=== PATIENT | female | born 1980 | race African-American/Black ===

== ENCOUNTER 2016-04-22 20:05 | Emergency (ER) | payer OTHER ==
[2016-04-22 20:19] VITALS: BP 134/83; PULSE 75; TEMP 98.4; BMI 22.8
--- NOTE | 2016-04-22 20:23 | PDOC ---
History of Present Illness - General History Source: Patient Exam Limitations: No Limitations - History of Present Illness Initial Comments: 04/22/16 21:16 The patient is a 35 year old female, with no significant past medical history, who presents to the emergency department with chest discomfort for the past 3 days. Three days ago, the patient reports taking a Motrin gelcap for a toothache. Since then, the patient has been experiencing what she describes as burning chest discomfort. The patient states that the chest discomfort is somewhat alleviated by drinking plenty of water but is not affected by food. The patient states that the pain is worse when lying down and that it wakes her up from sleep. The patient denies shortness of breath. The patient denies fever , chills, cough, nausea, vomiting, diarrhea or dysuria. The patient denies any previous history of cardiac disease or pulmonary embolism. The patient denies any recent exertion or trauma. The patient denies any recent long travel. The patient is not on control pills. Allergies: None reported. Past Surgical History: None reported. Social History: Non smoker. Denies alcohol or drug use. PCP: Dr. Joe Stiles <Emeli Huddleston - Last Filed: 04/22/16 22:08> <Emerson Valle - Last Filed: 04/22/16 22:12> - General Chief Complaint: Chest Pain Stated Complaint: CHEST PAIN Time Seen by Provider: 04/22/16 20:18 Past History <Emeli Huddleston - Last Filed: 04/22/16 22:08> - Immunization History Immunization Up to Date: Yes - Psycho/Social/Smoking Cessation Hx Anxiety: No Suicidal Ideation: No Smoking History: Never smoked Have you smoked in the past 12 months: No Information on smoking cessation initiated: No Hx Alcohol Use: No Drug/Substance Use Hx: No Substance Use Type: None <Emerson Valle - Last Filed: 04/22/16 22:12> - Past Medical History Allergies/Adverse Reactions: Allergies Allergy/AdvReac Type Severity Reaction Status Date / Time No Known Allergies Allergy Verified 04/22/16 20:19 Home Medications: Ambulatory Orders NK [No Known Home Medication] 09/28/15 Review of Systems - Review of Systems Constitutional: No: Chills, Fever HEENTM: No: Nose Congestion, Throat Pain Respiratory: No: Cough, Shortness of Breath Cardiac (ROS): Yes: Chest Pain, Palpitations. No: Syncope ABD/GI: No: Diarrhea, Nausea, Vomiting All Other Systems: Reviewed and Negative <Emerson Valle - Last Filed: 04/22/16 22:12> *Physical Exam - Vital Signs Last Vital Signs Temp Pulse Resp BP Pulse Ox 98.4 F 75 18 134/83 100 04/22/16 20:14 04/22/16 20:14 04/22/16 20:14 04/22/16 20:14 04/22/16 20:14 - Physical Exam Comments: 04/22/16 20:37 GENERAL:The patient is awake, alert, and fully oriented, in no acute distress. HEAD: Normal with no signs of trauma. EYES: Pupils equal, round and reactive to light, extraocular movements intact, sclera anicteric, conjunctiva clear with no pallor. ENT: Ears normal, nares patent, oropharynx clear without exudates. Moist mucous membranes. NECK: Normal range of motion, supple without lymphadenopathy, JVD, or masses. LUNGS: Breath sounds equal, clear to auscultation bilaterally. No wheeze/ crackles. HEART: Regular rate and rhythm, normal S1 and S2 without murmur or rub. ABDOMEN: Soft/nontender/nondistended. BS wnl. No guarding or rebound. No palpable masses. No hepatosplenomegaly. EXTREMITIES: Normal range of motion, no edema. No clubbing or cyanosis. No cords , erythema, or tenderness. No calf tenderness. NEUROLOGICAL: Cranial nerves II through XII grossly intact. Normal speech, normal gait. PSYCH: Normal mood, normal affect. SKIN: Warm, dry, normal turgor, no rashes or lesions noted. <Emeli Huddleston - Last Filed: 04/22/16 22:08> - Vital Signs Last Vital Signs Temp Pulse Resp BP Pulse Ox 98.4 F 75 18 134/83 100 04/22/16 20:14 04/22/16 20:14 04/22/16 20:14 04/22/16 20:14 04/22/16 20:14 <Emerson Valle - Last Filed: 04/22/16 22:12> Heart Score/ECG Review - History History: Slightly suspicious - Electrocardiogram EKG: Normal - Age Age: </= 45 - Risk Factors Based on the list above the patient has:: No risk factors known #1 ECG reviewed & interpreted by me at: 20:09 General ECG Interpretation: Sinus Rhythm, Normal Rate (72), Normal Intervals ( IRBBB, QTC 429), No acute ischemic changes <Emerson Valle - Last Filed: 04/22/16 22:12> Medical Decision Making - Medical Decision Making 04/22/16 22:09 Chest X-Ray Preliminary Reading (awaiting official report): Normal heart. No pneumothorax. No infiltrate. <Emeli Huddleston - Last Filed: 04/22/16 22:08> - Medical Decision Making 04/22/16 20:44 A portion of this note was documented by scribe services under my direction. I have reviewed the details of the note, within reason, and agree with the documentation with the following case summary and management plan written by me. Healthy 35-year-old female with no severe past medical history, no ACS or PE risk factors presents with 3 days of intermittent chest tightness. Patient took a dose of Motrin 3 days ago for toothache, since then has had intermittent chest burning relieved only with drinking water and worsened with lying flat. No nausea or vomiting or hematemesis, no exertional component, no fevers or chills or cough. Vital signs normal, specifically she is not tachycardic or hypoxic Exam is normal, no signs or symptoms of DVT 35-year-old female with atypical chest pain and no risk factors for ACS or PE. She clinically rules out for both, presentation is most consistent with gastritis/GERD particularly given the history of NSAID intake. EKG is nonischemic Check chest x-ray Trial of Maalox and antacid Dispo accordingly 04/22/16 22:10 On my preliminary review of the chest x-ray, there are no acute abnormalities. Feels well, ambulating, chest pain-free without shortness of breath. Agrees with discharge plan, understands return criteria. <Emerson Valle - Last Filed: 04/22/16 22:12> *DC/Admit/Observation/Transfer - Attestations Scribe Attestion: 04/22/16 20:29 Documentation prepared by Emeli Huddleston, acting as medical planner for Emerson Valle MD. <Emeli Huddleston - Last Filed: 04/22/16 22:08> <Emerson Valle - Last Filed: 04/22/16 22:12> Diagnosis at time of Disposition: Dyspepsia - Discharge Dispostion Disposition: HOME Condition at time of disposition: Improved - Referrals Referrals: Joe Stiles MD [Primary Care Provider] - Khurram Ruiz MD [Staff Physician] - - Patient Instructions Printed Discharge Instructions: DI for Dyspepsia, DI for Atypical Chest Pain Additional Instructions: Activity as tolerated. Stay hydrated. Advance diet as tolerated, avoiding dairy , spicy or fatty foods, caffeine and alcohol. Avoid anti-inflammatory medications like Motrin, ibuprofen, Advil, Aleve, aspirin. An EKG and a chest x-ray showed no evidence of acute heart or lung abnormality. Your symptoms are most likely due to GERD. Take Pepcid 20 mg twice daily for 10 days, this is available [id number]. Take Maalox or Tums as needed for the next 3 days for immediate relief. You should follow up with your primary doctor and a legislative aide ( consider calling Dr. Ruiz) as soon as possible regarding today's emergency department visit. Return to the emergency department for any new or concerning symptoms, particularly persistent or worsening pain, difficulty breathing, bloody vomit, cough or fevers or chills.
[2016-04-22] MEDS ORDERED: RANITIDINE HCL 150 MG TABLET (FP) PO ONE (20:37)
[2016-04-22] MEDS ORDERED: MAG HYDROX/AL HYDROX/SIMETH 30 ML UNIT-DOSE CUP PO ONE (20:37)
[2016-04-22] MEDS ORDERED: RANITIDINE HCL 150 MG TABLET (FP) ONE (21:01)
[2016-04-22] MEDS ORDERED: MAG HYDROX/AL HYDROX/SIMETH 30 ML UNIT-DOSE CUP ONE (21:01)
--- NOTE | 2016-04-23 20:14 | EKG ---
Test Reason : Blood Pressure : / mmHG Vent. Rate : 072 BPM Atrial Rate : 072 BPM P-R Int : 134 ms QRS Dur : 082 ms QT Int : 392 ms P-R-T Axes : 058 057 029 degrees QTc Int : 429 ms LIKELY NORMAL SINUS RHYTHM WITH SINUS ARRHYTHMIA CAMEL HUMP T WAVE MORPHOLOGY IN ANTERIOR LEADS WHEN COMPARED WITH ECG OF 09-DEC-2014 23:16, FLAT T WAVES NO LONGER EVIDENT IN INFEROLATERAL LEADS Confirmed by BALBINA REYES, GLORIA ([id number]) on 04/23/2016 8:14:39 PM Referred By: Confirmed By:GLORIA MORTENSEN MD
== END 2016-04-22 22:18 | disposition home or self-care (01) ==
LOC: JER 20:05 → SUPCPDRO 20:05 → JER 22:18
DX: R10.13 Epigastric pain (principal)
CPT/HCPCS: 71020-TC; 84703; 93005; 93010; 99282-25

== ENCOUNTER 2016-08-21 21:47 | Emergency (ER) | payer OTHER ==
[2016-08-21 21:57] VITALS: BMI 22.0
[2016-08-22] MEDS ORDERED: AZITHROMYCIN 1 GM PACKET PO ONE (00:11)
[2016-08-22] MEDS ORDERED: AZITHROMYCIN 1 GM PACKET ONE (00:17)
[2016-08-22] MEDS ORDERED: AZITHROMYCIN 250 MG TABLET (FP) ONE (00:18)
[2016-08-22] MEDS ORDERED: RALTEGRAVIR POTASSIUM 400 MG TAB PO SCH (00:30)
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
[2016-08-22] MEDS ORDERED: LIDOCAINE HCL/PF 1% SDV 5ML VIAL ONE (00:41)
[2016-08-22] MEDS ORDERED: TENOFOVIR DISOPROXIL FUMARATE 300 MG TABLET PO SCH ×2 (00:45→10:00)
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
[2016-08-22 02:07] LABS: BASOPHIL 0.8 % (0-2.0); EOSINOPHIL 3.2 % (0-4.5); MCH 28.1 pg (25.7-33.7); MCHC 32.4 g/dl (32.0-36.0); MEAN CELL VOLUME 86.8 fl (80-96); MEAN PLT VOLUME 8.8 fl (7.5-11.1); PLATELET COUNT 235 K/MM3 (134-434); RDW 17.2 % (11.6-15.6); WHITE BLOOD COUNT 3.4 K/mm3 (4.0-10.0)
[2016-08-22 02:25] LABS: URINE APPEARANCE CLEAR; URINE BILIRUBIN NEGATIVE (NEGATIVE); URINE COLOR STRAW; URINE GLUCOSE (UA) NEGATIVE (NEGATIVE); URINE KETONE NEGATIVE (NEGATIVE); URINE LEUK ESTERASE NEGATIVE (NEGATIVE); URINE NITRITE NEGATIVE (NEGATIVE); URINE PROTEIN NEGATIVE (NEGATIVE); URINE UROBILINOGEN NEGATIVE E.U./dl (0.2-1.0)
[2016-08-22] MEDS ORDERED: IBUPROFEN 600 MG TABLET (FP) PO ONE (02:27)
[2016-08-22 02:28] LABS: URINE BLOOD 1+ (NEGATIVE)
[2016-08-22 02:35] LABS: ALBUMIN 3.9 g/dl (3.4-5.0); ANION GAP 9 (8-16); CALCIUM 8.6 mg/dL (8.5-10.1); CHOLESTEROL 160 mg/dL (50-200); CO2 26 mmol/L (21-32); CREATININE 0.9 mg/dL (0.55-1.02); GLUCOSE,RANDOM 93 mg/dL (74-106); LDH 241 U/L (84-246); PHOSPHOROUS 3.3 mg/dL (2.5-4.9); SGOT/AST 38 U/L (15-37); SGPT/ALT 23 U/L (12-78); URIC ACID 4.2 mg/dL (2.6-7.2)
[2016-08-22 02:37] LABS: ALK PHOS 53 U/L (45-117); BILIRUBIN,TOTAL 0.4 mg/dL (0.2-1.0)
[2016-08-22 02:51] LABS: URINE RBC <1 /hpf (0-3); URINE WBC 1 /hpf (3-5)
[2016-08-22] MEDS ORDERED: EMTRICITABINE 200 MG CAPSULE PO SCH (03:10)
[2016-08-22 03:12] LABS: HIV 1 & 2 AB NEGATIVE; HIV 1 AGp24 NEGATIVE
[2016-08-22] MEDS ORDERED: ONDANSETRON 4 MG TABLET PO ONE (03:52)
[2016-08-22] MEDS ORDERED: ONDANSETRON *ODT* 4 MG TABLET ONE (03:56)
[2016-08-22 04:00] VITALS: BP 136/72; PULSE 70; TEMP 98.2
[2016-08-23] MEDS ORDERED: EMTRICITABINE 200MG/TENOFOVIR 300MG PO SCH (10:00)
== END 2016-08-22 03:59 | disposition home or self-care (01) ==
LOC: JER 21:47
DX: Z04.41 Encounter for examination and observation following alleged adult rape (principal); Y07.9 Unspecified perpetrator of maltreatment and neglect
CPT/HCPCS: 36415; 80053; 81003; 81015; 82465; 82977; 83615; 84100; 84478; 84550; 84703; 85025; 86593; 86704; 86706; 87086; 87340; 87389; 87491; 87591; 96372; 99282-25

== ENCOUNTER 2019-11-05 17:12 | Inpatient (IN) | payer OTHER ==
--- NOTE | 2019-11-05 17:29 | PDOC ---
Rapid Medical Evaluation Time Seen by Provider: 11/05/19 17:23 Medical Evaluation: Allergies Allergy/AdvReac Type Severity Reaction Status Date / Time No Known Allergies Allergy Verified 08/21/16 21:57 11/05/19 17:29 CC: Pt states was given prolixin injection on the oct 24 and now with weakness, tongue thickness, feeling jittery Exam: no fasciculation of the body or tongue, vss, appears lethargic Plan: labs, low suspicion for tardive dyskin 11/05/19 17:44 Discharge Disposition - Diagnosis Medication side effect, Adverse drug reaction - Discharge Dispostion Disposition: HOME Condition at time of disposition: Improved - Referrals - Patient Instructions - Post Discharge Activity
[2019-11-05 17:33] VITALS: BMI 22.8
[2019-11-05 18:40] LABS: BASO % 0.6 % (0-2.0); EOS % 1.4 % (0-4.5); HEMOGLOBIN 10.8 GM/dL (10.7-15.3); LYMPH % 32.1 % (8-40); MCH 28.4 pg (25.7-33.7); MCHC 32.9 g/dl (32.0-36.0); MEAN CELL VOLUME 86.3 fl (80-96); MEAN PLT VOLUME 10.2 fl (7.5-11.1); MONO % 8.8 % (3.8-10.2); NEUT % 57.1 % (42.8-82.8); PLATELET COUNT 189 K/MM3 (134-434); RBC 3.82 M/mm3 (3.60-5.2); RDW 16.7 % (11.6-15.6); WHITE BLOOD COUNT 4.9 K/mm3 (4.0-10.0)
[2019-11-05 19:16] LABS: ALBUMIN 4.3 g/dl (3.4-5.0); ALK PHOS 53 U/L (45-117); ANION GAP 7 MMOL/L (8-16); BILIRUBIN,TOTAL 0.4 mg/dL (0.2-1); BLOOD UREA NITROGEN 9.6 mg/dL (7-18); CALCIUM 8.9 mg/dL (8.5-10.1); CHLORIDE 105 mmol/L (98-107); CO2 26 mmol/L (21-32); GLUCOSE,RANDOM 84 mg/dL (74-106); POTASSIUM 4.1 mmol/L (3.5-5.1); SGOT/AST 16 U/L (15-37); SGPT/ALT 18 U/L (13-61); SODIUM 139 mmol/L (136-145); TOT PROT 8.1 g/dl (6.4-8.2)
[2019-11-05] MEDS ORDERED: LORazepam 2 MG/ML SDV VIAL ONE (19:49)
--- NOTE | 2019-11-05 20:13 | PDOC ---
*Physical Exam - Vital Signs Last Vital Signs Temp Pulse Resp BP Pulse Ox 98.0 F 92 H 18 142/101 H 100 11/05/19 17:25 11/05/19 17:25 11/05/19 17:25 11/05/19 17:25 11/05/19 17:25 - Physical Exam 11/05/19 20:11 gen: aaox3, anxious, tremulous heart: +s1s2 reg lungs: cta b/l abd: soft, nt/nd +bs ext: tremors, no c/c/e Heart Score/ECG Review - ECG Intrepretation Comment:: 11/05/19 20:12 sinus at 66, nl axis, nl interval, no acute st/t wave findings ED Treatment Course - LABORATORY CBC & Chemistry Diagram: 11/05/19 18:20 11/05/19 18:20 - ADDITIONAL ORDERS Additional order review: Laboratory Results 11/05/19 11/05/19 18:20 18:20 Sodium 139 Potassium 4.1 Chloride 105 Carbon Dioxide 26 Anion Gap 7 L BUN 9.6 Creatinine 1.0 Est GFR (CKD-EPI)AfAm 83.35 Est GFR (CKD-EPI)NonAf 71.91 Random Glucose 84 Calcium 8.9 Total Bilirubin 0.4 AST 16 ALT 18 Alkaline Phosphatase 53 Troponin I < 0.02 Total Protein 8.1 Albumin 4.3 Serum , Qual Negative 11/05/19 18:20 RBC 3.82 MCV 86.3 MCHC 32.9 RDW 16.7 H MPV 10.2 D Neutrophils % 57.1 D Lymphocytes % 32.1 D Monocytes % 8.8 Eosinophils % 1.4 Basophils % 0.6 - Medications Given in the ED: ED Medications Discontinued Medications Generic Name Dose Route Start Last Admin Trade Name Freq PRN Reason Stop Dose Admin Diphenhydramine HCl 25 mg 11/05/19 18:06 11/05/19 18:27 Benadryl Injection - IVPB 11/05/19 18:07 25 mg ONCE ONE Administration Lorazepam 2 mg 11/05/19 19:42 11/05/19 20:04 Ativan Injection - IVPUSH 11/05/19 19:43 2 mg ONCE ONE Administration Medical Decision Making - Medical Decision Making 11/05/19 20:12 a/p: 39yo female who is having an adverse reaction to Prolia injection -pt given benadryl and ativan -felt better initially, but symptoms returning -will need admission overnight -labs reviewed 11/05/19 20:13 ck pending ua pending 11/05/19 22:13 pt will be admitted for further eval Discharge - Discharge Information Problems reviewed: Yes Clinical Impression/Diagnosis: Medication side effect, Adverse drug reaction Condition: Fair - Admission Yes - Follow up/Referral - Patient Discharge Instructions - Post Discharge Activity
--- NOTE | 2019-11-05 20:22 | PDOC ---
History of Present Illness - General Chief Complaint: Allergic Reaction Stated Complaint: PERSONAL Time Seen by Provider: 11/05/19 17:23 - History of Present Illness Initial Comments: 11/05/19 20:20 39-year-old female given an injection of Prolixin for psychosis on October 23 presents for evaluation of dystonic reactions increasing over the last 4 days she feels shaky and inability to sit still neck and muscle cramping at times. Past History - Medical History Allergies/Adverse Reactions: Allergies Allergy/AdvReac Type Severity Reaction Status Date / Time No Known Allergies Allergy Verified 08/21/16 21:57 Home Medications: Ambulatory Orders Emtricitabine/Tenofovir (Tdf) [Truvada 200 mg-300 mg Tablet] 1 each PO DAILY #27 tablet 08/22/16 NK [No Known Home Medication] 08/22/16 Raltegravir [Isentress -] 400 mg PO BID #46 tab 08/22/16 Anemia: No Asthma: No COPD: No Diabetes: No Psychiatric Problems: Yes Seizures: No - Reproductive History Is Patient Now?: No - Immunization History Immunization Up to Date: Yes - Psycho-Social/Smoking History Smoking History: Never smoked Have you smoked in the past 12 months: No Information on smoking cessation initiated: No - Substance Abuse Hx (Audit-C & DAST Scrn) How often the patient has a drink containing alcohol: Monthly or less Number of drinks the patient has on a typical day: 1 or 2 How often the patient has six or more drinks on one occasion: Less than monthly Score: In Men: 4 or > Positive; In Women: 3 or > Positive: 2 Screen Result (Pos requires Nsg. Audit-10AR): Negative In the last yr the pt used illegal drug/Rx for NonMed reason: No Score: Yes response is considered Positive: 0 Screen Result (Positive result requires Nsg. DAST-10): Negative Review of Systems - Review of Systems Able to Perform ROS?: No Constitutional: No: Fever Neurological: Yes: See HPI, Tremors *Physical Exam - Vital Signs Last Vital Signs Temp Pulse Resp BP Pulse Ox 98.0 F 92 H 18 142/101 H 100 11/05/19 17:25 11/05/19 17:25 11/05/19 17:25 11/05/19 17:25 11/05/19 17:25 - Physical Exam General Appearance: Yes: Nourished, Appropriately Dressed. No: Apparent Distress HEENT: positive: Symmetrical Neck: positive: Supple Respiratory/Chest: positive: Normal Breath Sounds. negative: Respiratory Distress Musculoskeletal: positive: Normal Inspection Extremity: positive: Normal Inspection Integumentary: positive: Normal Color, Dry, Warm Neurologic: positive: recreation therapy teacher II-XII NML intact, Fully Oriented, Other (Somewhat anxious with intermittent resting tremors) ED Treatment Course - LABORATORY CBC & Chemistry Diagram: 11/05/19 18:20 11/05/19 18:20 - ADDITIONAL ORDERS Additional order review: Laboratory Results 11/05/19 11/05/19 18:20 18:20 Sodium 139 Potassium 4.1 Chloride 105 Carbon Dioxide 26 Anion Gap 7 L BUN 9.6 Creatinine 1.0 Est GFR (CKD-EPI)AfAm 83.35 Est GFR (CKD-EPI)NonAf 71.91 Random Glucose 84 Calcium 8.9 Total Bilirubin 0.4 AST 16 ALT 18 Alkaline Phosphatase 53 Troponin I < 0.02 Total Protein 8.1 Albumin 4.3 Serum , Qual Negative 11/05/19 18:20 RBC 3.82 MCV 86.3 MCHC 32.9 RDW 16.7 H MPV 10.2 D Neutrophils % 57.1 D Lymphocytes % 32.1 D Monocytes % 8.8 Eosinophils % 1.4 Basophils % 0.6 - Medications Given in the ED: ED Medications Discontinued Medications Generic Name Dose Route Start Last Admin Trade Name Freq PRN Reason Stop Dose Admin Diphenhydramine HCl 25 mg 11/05/19 18:06 11/05/19 18:27 Benadryl Injection - IVPB 11/05/19 18:07 25 mg ONCE ONE Administration Lorazepam 2 mg 11/05/19 19:42 11/05/19 20:04 Ativan Injection - IVPUSH 11/05/19 19:43 2 mg ONCE ONE Administration Medical Decision Making - Medical Decision Making 11/05/19 20:22 Hospitalist called for admission. Discharge - Discharge Information Problems reviewed: Yes Clinical Impression/Diagnosis: Medication side effect, Adverse drug reaction Condition: Fair - Admission Yes - Follow up/Referral - Patient Discharge Instructions - Post Discharge Activity
[2019-11-05 20:25] LABS: COCAINE, UR NEGATIVE ng/ml (CUTOFF=300); METHADONE, UR NEGATIVE ng/ml (CUTOFF=300); PHENCYCLIDINE,URINE NEGATIVE ng/ml (CUTOFF=25); URINE AMPHETAMINES NEGATIVE ng/ml (CUTOFF=500); URINE BARBITURATES NEGATIVE ng/ml (CUTOFF=200); URINE BENZODIAZEPINES NEGATIVE ng/ml (CUTOFF=200)
[2019-11-05 20:29] LABS: OPIATES, URI NEGATIVE ng/ml (CUTOFF=300)
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
--- OUTSIDE RECORDS SUMMARY | 2019-11-05 21:36 | XMS ---
:1980 Author Organization [facility] Care Team Providers Name Role Phone Dexter Lozanohi Unavailable [phone] Eladia Mancuso Unavailable Unavailable ED STAFF PHYSICIAN, STAFF Unavailable Unavailable OYEKOLA SCRAP BALLER, MOBOLAJI Unavailable OYEKOLA SCRAP BALLER, MOBOLAJI Unavailable OYEKOLA SCRAP BALLER, MOBOLAJI Unavailable KRIS REYES, DH[facility]EMPE [facility] Awilda Unavailable KRIS REYES, Awilda Unavailable Awilda PONCE MD Unavailable KRIS REYES, Awilda Unavailable Awilda PONCE MD Unavailable KRIS REYES, Awilda Unavailable KRIS REYES, Awilda Unavailable Awilda PONCE MD Unavailable KRIS REYES, Awilda Unavailable Awilda PONCE MD Unavailable KRIS REYES, Awilda Unavailable Awilda PONCE MD Unavailable Awilda PONCE MD Unavailable Awilda PONCE MD Unavailable YASMIN Kaiser Unavailable Unavailable Armendariz Unavailable Unavailable Armendariz Unavailable Unavailable Armendariz Unavailable Unavailable Armendariz Unavailable Unavailable Armendariz Unavailable Unavailable Armendariz Unavailable Unavailable Armendariz Unavailable Unavailable Armendariz Unavailable Unavailable Armendariz Unavailable Unavailable Armendariz Unavailable Unavailable Ekechukwu Unavailable [phone] Ekechukwu Unavailable [phone] GIL NUNEZ Unavailable Unavailable Favio, Taylor MD Unavailable Unavailable Favio, Taylor MD Unavailable Unavailable Favio, Taylor MD Unavailable Unavailable Favio, Taylor MD Unavailable Unavailable Favio, Taylor MD Unavailable Unavailable Favio, Taylor MD Unavailable Unavailable Favio, Taylor MD Unavailable Unavailable Favio, Taylor MD Unavailable Unavailable Favio, Taylor MD Unavailable Unavailable Favio, Taylor MD Unavailable Unavailable Favio, Taylor MD Unavailable Unavailable Favio, Taylor MD Unavailable Unavailable Favio, Taylor MD Unavailable Unavailable Favio, Taylor MD Unavailable Unavailable Favio, Taylor MD Unavailable Unavailable Lloyd Unavailable Unavailable [facility] Unavailable Unavailable [facility] Unavailable Re-disclosure Warning The records that you are about to access may contain information from federally- assisted alcohol or drug abuse programs. If such information is present, then the following federally mandated warning applies: This information has been disclosed to you from records protected by federal confidentiality rules (42 CFR part 2). The federal rules prohibit you from making any further disclosure of this information unless further disclosure is expressly permitted by the written consent of the person to whom it pertains or as otherwise permitted by 42 CFR part 2. A general authorization for the release of medical or other information is NOT sufficient for this purpose. The Federal rules restrict any use of the information to criminally investigate or prosecute any alcohol or drug abuse patient.The records that you are about to access may contain highly sensitive health information, the redisclosure of which is protected by Article 27-F of the [place] State Public Health law. If you continue you may haveaccess to information: Regarding HIV / AIDS; Provided by facilities licensed or operated by the [facility] Office of Mental Health; or Provided by the [facility] Office for People With Developmental Disabilities. If such information is present, then the following [facility] mandated warning applies: This information has been disclosed to you from confidential records which are protected by state law. State law prohibits you from making any further disclosure of this information without the specific written consent of the person to whom it pertains, or as otherwise permitted by law. Any unauthorized further disclosure in violation of state law may result in a fine or senior care sentence or both. A general authorization for the release of medical or other information is NOT sufficient authorization for further disclosure. Allergies and Adverse Reactions Type Description Substance Reaction Status Data Source(s ) Allergy to No Known Allergies No known GREENW AY ([facility] substance allergies Miguel (situation) [facility]) Drug allergy No Known Drug No Known Drug [facility] Propensity to Propensity to Propensity to NEXTG EN ([facility] adverse reactions adverse reactions adverse [facility] (disorder) (disorder) reactions Center) (disorder) Encounters Encounter Providers Location Date Indications Data Source(s ) Outpatient 10/20/2019 [facility] ([facility] 09:59:00 AM [facility]T Development) Outpatient Referrer: Catarina 10/20/2019 [facility] ([facility] 09:53:00 AM [facility]T Development) Outpatient Referrer: Catarina 10/20/2019 [facility] ([facility] 09:53:00 AM [facility] EDT Development) Inpatient Attender: ARNOLD PopeHALJonathan 10/02/2019 [facility] 04:50:00 PM Medical Karen Sintender: EDT - STAFF ED STAFF 10/31/2019 PHYSICIANAdmitter: 01:25:00 PM ARNOLD CORDERO EDT IRUANIReferrer: [id number] [facility] Patient discharged. Attender: Bushra [facility] 03/13/2019 MELANIE N ([facility] 02:28:00 PM [facility] 03/13/2019 Center) 02:28:00 PM EST Outpatient 12/04/2018 [facility] 12:39:00 PM EDT Medical C enter Outpatient Attender: Mabel Mayorga 12/04/2018 [facility] VelezAdmitter: 10:25:00 AM EDT Medic al Center Mabel ArmendarizReferrer: Mabel Armendariz OutpatientOFFICE/OU Attender: [facility] 12/04/2018 NE XTGEN ([facility] VISIT, [facility] 10:25:00 AM EDT - [facility] Ekechukwu 12/04/2018 Center) 10:25:00 AM EDT Outpatient 12/04/2018 [facility] 12:00:00 AM EDT - Medical Center 12/02/2018 12:00:00 AM EDT Inpatient Attender: SAMMIE H-HAL2 11/01/2018 [facility] YASMIN SAMMIE 01:51:00 PM EDT - Medic tx Center AAdmitter: SAMMIE 12/02/2018 YASMIN SAMMIE 10:40:00 AM EDT AReferrer: SAMMIE YASMIN SAMMIE A Patient discharged. 11/01/2018 [facility] 12:00:00 AM EDT Medical C enter - 12/02/2018 12:00:00 AM EDT Unlisted 10/17/2018 NETSMART (Ment al evaluation and 06:45:00 PM EDT Healt h management [facility]) Unlisted 06/27/2018 NETSMART (Ment al evaluation and 07:55:00 PM [facility] 10/17[facility] 05:00:00 PM EDT [facility]) Emergency H 06/17/2018 [facility] 12:23:00 PM EDT Medical C enter Outpatient<td Attender: STEPHANIE Johnston 05/21/2018 SONY VOGT ([facility] ID="encounterTyp [facility] 01:00:00 PM EDT Miguel eDescriptionID0" [place] - 05/21/2018 [facility] >THERAPY</td><td 11:59:00 PM EDT [facility]) >[facility]</td><td>[facility]</td><td>0 05/21/2018</td><t d></td> Outpatient 05/09/2018 [facility] 10:15:00 AM EDT ([facility]) Outpatient<td Attender: STEPHANIE Johnston 12/24/2017 SONY VOGT ([facility] ID="encounterTyp [facility] 09:00:00 AM EST Miguel eDescriptionID1" [place] - 12/24/2017 [facility] >THERAPY</td><td 11:59:00 PM EST [facility]) >[facility]</td><td>[facility]</td><td>1 02/23/2017</td><t d></td> Outpatient<td Attender: STEPHANIE Johnston 11/26/2017 SONY VOGT ([facility] ID="encounterTyp [facility] 09:00:00 AM EDT Miguel eDescriptionID2" Center - 11/26/2017 [facility] >THERAPY</td><td 11:59:00 PM EDT [facility]) >[facility]</td><td>[facility]</td><td>1 </td><t d></td> U Attender: Eladia Quiroz 11/15/2017 CARELOGRobinson Tanner ([facility] 12:30:00 PM EDT Services of - 03/21/2018 [facility]) 04:08:00 PM EST Outpatient<td Attender: JOSSIE Johnston 11/02/2017 CARRIE YUNG ([facility] ID="encounterTyp [facility] 01:15:00 PM EDT Miguel eDescriptionID3" Center - 11/02/2017 [facility] >WALKINS</td><td 01:31:48 PM EDT [facility]) >[facility]</td><td>[facility]</td><td>0 11/02/2017</td><t d></td> Outpatient<td [facility] 03/02/2014 SONY VOGT ([facility] ID="encounterTyp Center 09:30:00 AM EST Emily non eDescriptionID4" - 03/02/2014 [facility] >INITIAL 11:59:00 PM EST Health Ce nter) VISIT</td><td> </td><td>[facility]</td><td>0 03/02/2014</td><t d></td> Outpatient<td Attender: Single Homeless 05/07/2012 SONY VOGT ([facility] ID="encounterTyp DHMISAEL Accessment 11:00:00 AM EDT V zack eDescriptionID5" KRIS REYES [place] - 05/07/2012 [facility] >Follow 11:59:00 PM EDT [facility] nter) Up</td><td>JUSTIN PONCE MD</td><td>[facility] e [facility]eless Accessment Center</td><td>0 05/07/2012</td><t d></td> Outpatient<td Attender: Single Homeless 05/03/2012 SONY VOGT ([facility] ID="encounterTyp BETSY Accessment 09:00:00 AM EDT V zack eDescriptionID6" KRIS REYES [place] - 05/03/2012 [facility] >INITIAL 11:59:00 PM EDT Health nter) VISIT</td><td>DH MISAEL PONCE MD</td><td>Sing e Homeless Accessment Center</td><td>0 05/03/2012</td><t d></td> Attender: [facility] 01/14/2007 NEXTGE N ([facility] 10:34:00 AM [facility] - 01/14/2007 Center) 10:34:00 AM EST Immunizations Vaccine Date Status Description Data Source(s) As of October 1998, a 07/19/2006 completed hep B (adult) NEX TGEN ([facility] 2-dose hepatitis B 12:00:00 AM [facility] Medical schedule for adolescents [address] ter) (11-15 year olds) was FDA approved for Merck's Recombivax HB adult formulation. Use code 43 for the 2-dose. This code should be used for any use of standard adult formulation of hepatitis B vaccine. Source: New Immunization Record DTaP, 5 pertussis 07/19/2006 12:00:00 AM completed DTaP NEXTGEN ([facility] antigens [facility]) Source: New Immunization Record DTaP, 5 pertussis antigens completed DTaP N EXTGEN ([facility]) Source: New Immunization Record Medications Medication Brand Start Product Dose Route Administrative Pharmacy St at Indications Reaction Description Data Name Date Form Instructions Instructions Source(s) quetiapine QUEtia 1.0 Oral active NET SMART 100 MG Oral pine 2019 Table (Mental Tablet Fumara 05:00: t Health te 00 AM Associatio EST n of [facility] r) Hydroxyzine hydrOX 01/07/ 1.0 Oral active NE TSMART Hydrochlori Yzine 2018 Table (Menta l de 25 MG HCl 05:00: t Health Oral Tablet 00 AM Associa kirby EST n of [facility] r) Vitamin B cyanoc 1 complet Saint 12 1 MG obalam ed Gena Oral Tablet in Medical cyanocobala (vitam Center min in (vitamin B-12) B-12) 1,000 1,000 mcg Tablet, mcg Ordered By: Tablet Yasmin Cochran, Ralphe PMHNPDirect d By: ions: 1 Sammie tablet oral Yasmin daily , PMHNPD irecti ons: 1 tablet oral daily mirtazapine complet Saint 15 mg ed Gena Tablet [facility] Center ferrous ferrou 1 complet Saint sulfate 325 s ed Gena MG Oral sulfat Medical Tablet e 325 Center ferrous mg (65 sulfate 325 mg mg (65 mg iron) iron) Tablet Tablet, , Ordered By: Leah Cochran d By: Sammie Chávez PMHNPDirect [facility] ions: 1 , tablet oral PMHNPD daily irecti ons: 1 tablet oral daily aripiprazol aripip 1 complet Edilson nt e 10 MG razole ed Gena Oral Tablet 10 mg Medical aripiprazol Tablet Center e 10 mg , Tablet, Ordere Ordered By: d By: Sammie Chávez [facility] PMHNPDirect , ions: 1 PMHNPD tablet oral irecti daily every ons: 1 morning tablet oral daily every mornin g Fluphenazin fluphe 1 complet Edilson nt e nazine ed Gena Hydrochlori HCl 5 Medical de 5 MG mg Center Oral Tablet Tablet fluphenazin , e HCl 5 mg Ordere Tablet, d By: Ordered By: Arnold Cordero, , MDDirection MDDire s: 1 tablet ctions oral twice : 1 a day tablet oral twice a day No drug active No ROBERTA Medications or Medications ( [facility] medica [facility] fluphenazin fluPHE 1 mL complet Edilson nt e decanoate NAZine ed Joe s 25 MG/ML decano Medical Injectable ate 25 Center Solution mg/mL fluPHENAZin Soluti e decanoate on, 25 mg/mL Ordere Solution, d By: Ordered By: Arnold Cordero, , MDDirection MDDire s: 1 mL ctions intramuscul : 1 mL ar monthly intram uscula r monthl y Divalproex divalp 2 complet [place] t Sodium 250 roex ed Gena MG Delayed 250 mg Medical Release tablet Center Oral Tablet ,delay divalproex ed 250 mg releas tablet,wilton e yed release (/EC (/EC), ), Ordered By: Ralphe Arnold d By: Arnold Cordero MDDirection Cordero s: 2 tablet , oral twice MDDire a day ctions : 2 tablet oral twice a day Trazodone traZOD 1 complet [facility] Hydrochlori one 50 ed Joe s de 50 MG mg Medical Oral Tablet Tablet Center traZODone , 50 mg Ordere Tablet, d By: Ordered By: Arnold Cordero, , MDDirection MDDire s: 1 tablet ctions oral daily : 1 at bedtime tablet PRN oral insomnia daily at bedtim e PRN insomn ia Risperidone risper 1 complet Edilson nt 3 MG Oral idone ed Gena Tablet 3 mg Medical risperidone Tablet Center 3 mg , Tablet, Ordere Ordered By: d By: Yasmin Tran PMHNPDirect , ions: 1 PMHNPD tablet oral irecti twice a day ons: 1 tablet oral twice a day Insurance Providers Payer name Policy type / Policy ID Covered Covered alliance party's Policy Plan Coverage type alliance party ID relationship to Birch Information birch MEDICAID [id number] SP [id number] MEDICARE [id number] SP [id number] 98 M [id number] 01 [id number] 98 M [id number] 01 [id number] 98 W [id number] 01 [id number] MEDICAID F 18 F [id number] 01 [id number] 98 W [id number] 01 [id number] M [id number] 01 [id number] 98 M [id number] 01 [id number] A W [id number] 01 [id number] M [id number] 01 [id number] A M [id number] A Medicare Self MEDICAID [id number] Medicaid of Individual 0 Self 0 [place] Policy Medicare Part Individual 0 Self 0 A of [place] Policy Medicare-Blue [id number] S [id number] Cross/Blue 98 Shield MVP Medicaid [id number] S [id number] Y Managed Care Medicaid [id number] S [id number] Regular Clinic Visit Medicare [id number] S [id number] Services Problems, Conditions, and Diagnoses Code Display Name Description Problem Type Effective Data Sour ce(s) Dates 65964628 Delusional Delusional Complaint 07/22/2018 NETSMART (Ment al disorder disorder 05:30:00 PM [facility] EDT [facility]) [id number] No Active No Active Problem 11/02/2017 ROBERTA (Moun t Problems Problems 12:00:00 AM [facility]) [id number] Adjustment Adjustment Complaint 04/17/2013 TRACIEMART (Ment al disorder with disorder with 05:00:00 AM Health anxious mood anxious mood EST [facility]) F31.13 Bipolar disorder, BIPOLAR DISORD, Diagnosis 10/02/2019 Sa mahamed [facility] current episode CRNT EPSD MANIC 04:50:00 PM [facility] manic without W/O PSYCH EDT psychotic FEATURES, SEVERE features, severe Z71.9 Counseling, COUNSELING, Diagnosis 12/04/2018 [facility] Joe kauffman unspecified UNSPECIFIED 10:25:[address] EDT Z71.89 Other specified OTHER SPECIFIED Diagnosis 12/04/2018 [facility] counseling COUNSELING 10:25:00 AM Medical Cente r EDT Z68.22 Body mass index BODY MASS INDEX Diagnosis 12/04/2018 [facility] (BMI) 22.0-22.9, (BMI) 22.0-22.9, 10:25:[address] 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 12/02/2018 [facility] 10:40:00 AM Medical Cente r EDT D64.9 Anemia, ANEMIA, Diagnosis 12/02/2018 [facility] unspecified UNSPECIFIED 10:40:[address] EDT D72.819 Decreased white DECREASED WHITE Diagnosis 12/02/2018 [facility] blood cell count, BLOOD CELL COUNT, 10:40:00 AM Medical Center unspecified UNSPECIFIED EDT F20.0 Paranoid PARANOID Diagnosis 12/02/2018 [facility] schizophrenia SCHIZOPHRENIA 10:40:00 AM Medical Center EDT Z56.0 Unemployment, UNEMPLOYMENT, Diagnosis 12/02/2018 [facility] Lauren gabriel unspecified UNSPECIFIED 10:40:[address] [facility] [address] EDT Z91.14 Patient's other PATIENT'S OTHER Diagnosis 12/02/2018 [facility] noncompliance NONCOMPLIANCE 10:40:00 AM Medical Center with medication WITH MEDICATION EDT regimen REGIMEN R45.851 Suicidal SUICIDAL Diagnosis 11/01/2018 [facility] ideations IDEATIONS 01:51:00 PM Medical Cente r EDT G44.209 Tension-type TENSION-TYPE Diagnosis 06/17/2018 [facility] phs headache, HEADACHE, 12:23:00 PM Medical Cente r unspecified, not UNSPECIFIED, NOT EDT intractable INTRACTABLE R42 Dizziness and DIZZINESS AND Diagnosis 06/17/2018 [facility] gabriel giddiness GIDDINESS 12:23:00 PM Medical Cente r EDT Z03.89 Encounter for Encntr for obs Diagnosis 04/23/2018 SOHEILA Cid ([facility] observation for for oth suspected 07:08:38 PM V ernon other suspected diseases and cond EST Ne ighborhood diseases and ruled out Health Cente r) conditions ruled out F31.81 Bipolar II Bipolar II Diagnosis 11/15/2017 CARELOGIC disorder disorder 12:30:00 PM (Family Servi rufino EDT [facility] ) F43.25 Adjustment Adjustment Diagnosis 11/15/2017 CARELOGIC disorder with disorder with 12:30:00 PM (Family Services mixed disturbance mixed disturbance EDT [facility]) of emotions and of emotions and conduct conduct Surgeries/Procedures Procedure Description Date Indications Data Source(s) OFFICE/OUTPATIENT 12/04/2018 NEXTGEN (S aint VISIT, EST 12:00:[address] [facility] EDT - Center) 12/04/2018 12:00:00 AM EDT Alcohol and/or drug 09/19/2018 NETSMART (Mental screening 04:25:00 PM Health [facility]) PSYCHOTHERAPY 45 MINS PSYCHOTHERAPY 45 MINS 05/21/2018 ROBERTA ([facility] PT & OR FAMILY PT & OR FAMILY 12:00:00 AM [facility]) Federally qualified FQHC Visit Mental 12/24/2017 CARRIE YUNG ([email or web address] ([facility]) Health Established 12:00:00 AM [facility] visit, mental health, Patient [facility]) established patient; a medically-necessary, bsfh-qq-fqxl mental health encounter (one-on-one) between an established patient and a [facility] practitioner during which time one or more fq services are rendered and includes a typical bundle of medicare-covered services that would be furnished plug machine operator to a patient receiving a mental health visit PSYCHOTHERAPY 45 MINS PSYCHOTHERAPY 45 MINS 12/24/2017 ROBERTA ([facility] PT & OR FAMILY PT & OR FAMILY 12:00:00 AM [facility]) No mental illness No mental illness 11/27/2017 JOSE ALBERTO CLINTON ([facility] 12:00:00 AM [facility]) No chronic illness No chronic illness 11/27/2017 CARRIE YUNG ([facility] 12:00:00 AM [facility]) PSYCHIATRIC DX PSYCHIATRIC DX 11/26/2017 ROBERTA (M ount EVALUATION EVALUATION 12:00:00 AM [facility]) Federally qualified [facility] Visit Mental 11/26/2017 CARRIE YUNG ([email or web address] ([facility]) Health Established 12:00:00 AM [facility] visit, mental health, Patient [facility]) established patient; a medically-necessary, hysj-ro-bhip mental health encounter (one-on-one) between an established patient and a fq practitioner during which time one or more [facility] services are rendered and includes a typical bundle of medicare-covered services that would be furnished plug machine operator to a patient receiving a mental health visit Federally qualified FQHC Visit New 11/02/2017 SONY VOGT ([email or web address] ([facility]) Patient 12:00:00 [facility]; a [facility]) medically-necessary, kfoj-ky-dvhj encounter (one-on-one) between a new patient and a [facility] practitioner during which time one or more [facility] services are rendered and includes a typical bundle of medicare-covered services that would be furnished plug machine operator to a patient receiving a [facility] visit Results ID Date Data Source [id number] 10/31/2019 06:38:00 AM EDT [facility] 0400 Name Value Range Interpretation Description Data Sup porting Code Source(s) Document(s ) Erythrocytes 4.0-5.1 Below low normal <content Saint [#/volume] in styleCode="Bold Gena Blood by ">Red Blood Medical Automated count Cell Count Center </content>3.83 MCUMM L<content styleCode="Ital ics"> (4.0-5.1 MCUMM)</content > Erythrocyte mean 80.0-100 <content Saint corpuscular .0 styleCode="Bold Gena volume [Entitic ">Mean Medical volume] by Corpuscular Center Automated count Volume </content>86.2 FL<content styleCode="Ital ics"> (80.0-100.0 FL)</content> Hematocrit 36.0-46. Below low normal <content Saint [Volume 0 styleCode="Bold Gena Fraction] of ">Hematocrit Medical Blood by </content>33.0 Center Automated count % L<content styleCode="Ital ics"> (36.0-46.0 %)</content> Leukocytes 4.4-11.0 Below low normal <content Saint [#/volume] in styleCode="Bold Gena Blood by ">White Blood Medical Automated count Cell Count Center </content>3.32 KCUMM L<content styleCode="Ital ics"> (4.4-11.0 KCUMM)</content > Hemoglobin 12.3-16. Below low normal <content Saint [Mass/volume] in 0 styleCode="Bold Gena Blood ">Hemoglobin Medical </content>10.7 Center G/DL L<content styleCode="Ital ics"> (12.3-16.0 G/DL)</content> Erythrocyte 11.5-14. Above high <content Saint distribution 5 normal styleCode="Bold Gena width [Ratio] by ">Red Cell Medical Automated count Distribution Center Width </content>14.6 % H<content styleCode="Ital ics"> (11.5-14.5 %)</content> Platelets 130-400 <content Saint [#/volume] in styleCode="Bold Gena Blood by ">Platelet Medical Automated count Count Center </content>226 KCUMM<content styleCode="Ital ics"> (130-400 KCUMM)</content > Erythrocyte mean 32.0-37. <content Saint corpuscular 0 styleCode="Bold Gena hemoglobin ">Mean Corpus. Medical concentration Hgb Center [Mass/volume] by Concentration Automated count (MCHC) </content>32.4 G/DL<content styleCode="Ital ics"> (32.0-37.0 G/DL)</content> Erythrocyte mean 26.0-34. <content Saint corpuscular 0 styleCode="Bold Gena hemoglobin ">Mean Medical [Entitic mass] Corposcular Center by Automated Hemoglobin count </content>27.9 PG<content styleCode="Ital ics"> (26.0-34.0 PG)</content> Platelet mean 8.0-11.0 Above high <content Saint volume [Entitic normal styleCode="Bold Gena volume] in Blood ">Mean Platelet Medical by Automated Volume Center count </content>11.6 FL H<content styleCode="Ital ics"> (8.0-11.0 FL)</content> UNK 1.0-4.8 <content Saint styleCode="Bold Gena ">Lymphocyte Medical Count Center </content>1.91 KCUMM<content styleCode="Ital ics"> (1.0-4.8 KCUMM)</content > Lymphocytes 24.0-44. Above high <content Saint [#/volume] in 0 normal styleCode="Bold Gena Blood by ">Lymphocyte Medical Automated count </content>57.5 Center % H<content styleCode="Ital ics"> (24.0-44.0 %)</content> UNK 1.6-7.3 Below low normal <content Saint styleCode="Bold Gena ">Neutrophil [facility] </content>1.04 KCUMM L<content styleCode="Ital ics"> (1.6-7.3 KCUMM)</content > Neutrophils 36-66 Below low normal <content [facility] [#/volume] in styleCode="Bold Gena Blood by ">Neutrophil Medical Automated count </content>31.4 Center % L<content styleCode="Ital ics"> (36-66 %)</content> Basophils 0.0-1.0 <content [facility] [#/volume] in styleCode="Bold Gena Blood by ">Basophil Medical Automated count </content>0.6 Center %<content styleCode="Ital ics"> (0.0-1.0 %)</content> UNK 0.0-0.6 <content [facility] styleCode="Bold Gena ">Eosinophil Medical Count Center </content>0.09 KCUMM<content styleCode="Ital ics"> (0.0-0.6 KCUMM)</content > Monocytes 3.0-10.0 <content [facility] [#/volume] in styleCode="Bold Gena Blood by ">Monocyte Medical Automated count </content>7.8 Center %<content styleCode="Ital ics"> (3.0-10.0 %)</content> UNK 0.2-0.9 <content [facility] styleCode="Bold Gena ">Monocyte Medical Count Center </content>0.26 KCUMM<content styleCode="Ital ics"> (0.2-0.9 KCUMM)</content > Eosinophils 0-5.0 <content [facility] [#/volume] in styleCode="Bold Gena Blood by ">Eosinophil Medical Automated count </content>2.7 Center %<content styleCode="Ital ics"> (0-5.0 %)</content> UNK 0.0-0.3 <content [facility] styleCode="Bold Gena ">Basophil Medical Count Center </content>0.02 KCUMM<content styleCode="Ital ics"> (0.0-0.3 KCUMM)</content > UNK 0 <content [facility] styleCode="Bold Gena ">Nucleated Red Medical Blood Cell Center </content>0.0 /100<content styleCode="Ital ics"> (0 /100)</content> UNK 0.0 <content [facility] styleCode="Bold Gena ">Nucleated Red Medical Blood Cell Center Count </content>0.00 KCUMM<content styleCode="Ital ics"> (0.0 KCUMM)</content > UNK 0-0.1 <content [facility] styleCode="Bold Gena ">Immature Medical Granulocyte Center Count </content>0.00 KCUMM<content styleCode="Ital ics"> (0-0.1 KCUMM)</content > UNK < 1 <content [facility] styleCode="Bold Gena ">Immature Medical Granulocyte Center Ratio </content>0.0 %<content styleCode="Ital ics"> (< 1 %)</content> ID Date Data Source GFR(Creatinine).[id number] 10/31/2019 06:38:00 AM EDT [facility] 0-0400 Name Value Range Interpretation Code Description Data Amee rce(s) Supporting Document(s ) UNK > 60 <content [facility] styleCode="Bold"> Medical Cent er EGFR </content>80 GFR<content styleCode="Italic s"> (> 60 GFR)</content> ID Date Data Source CHMROUTINECCDA.[id number] 10/31/2019 06:38:00 AM EDT [facility] -0400 Name Value Range Interpretation Description Data Sup porting Code Source(s) Document(s ) Valproate 50-120 Below low normal <content [facility] [Mass/volume] styleCode="Bold Gena in Serum or ">Valproic Acid Medical Plasma </content>14.4 Center UG/ML L<content styleCode="Ital ics"> (50-120 UG/ML)</content > ID Date Data Source BMP.[id number] 10/31/2019 06:38:00 AM EDT [facility] Name Value Range Interpretation Description Data Sup porting Code Source(s) Document(s ) Sodium 137-145 <content [facility] [Moles/volume] styleCode="Jacklyn Gena in Serum or d">Sodium Medical Plasma </content>137 Center MEQ/L<content styleCode="Tania lics"> (137-145 MEQ/L)</conten t> Creatinine 0.5-1.3 <content [facility] [Mass/volume] styleCode="Jacklyn Gena in Serum or d">Creatinine Medical Plasma </content>1.0 Center MG/DL<content styleCode="Tania lics"> (0.5-1.3 MG/DL)</conten t> Chloride 98-107 <content [facility] [Moles/volume] styleCode="Jacklyn Gena in Serum or d">Chloride Medical Plasma </content>101 Center MEQ/L<content styleCode="Tania lics"> (98-107 MEQ/L)</conten t> UNK 7-17 <content [facility] styleCode="Jacklyn Gena d">BUN Medical </content>13 Center MG/DL<content styleCode="Tania lics"> (7-17 MG/DL)</conten t> Potassium 3.5-5.3 <content [facility] [Moles/volume] styleCode="Jacklyn Gena in Serum or d">Potassium Medical Plasma </content>4.1 Center MEQ/L<content styleCode="Tania lics"> (3.5-5.3 MEQ/L)</conten t> Carbon 22-30 <content [facility] dioxide, total styleCode="Jacklyn Gena [Moles/volume] d">Carbon Medical in Serum or Dioxide Center Plasma </content>29 MEQ/L<content styleCode="Tania lics"> (22-30 MEQ/L)</conten t> Calcium 8.4-10.2 <content [facility] [Mass/volume] styleCode="Jacklyn Gena in Serum or d">Calcium Medical Plasma </content>9.5 Center MG/DL<content styleCode="Tania lics"> (8.4-10.2 MG/DL)</conten t> Glucose 74-106 <content [facility] [Mass/volume] styleCode="Jacklyn Avery in Serum or d">Glucose Medical Plasma </content>89 Center MG/DL<content styleCode="Tania lics"> (74-106 MG/DL)</conten t> UNK > 60 <content [facility] styleCode="Jacklyn Avery d">EGFR Medical </content>80 Center GFR<content styleCode="Tania lics"> (> 60 GFR)</content> ID Date Data Source Liver 10/22/2019 06:30:00 AM EDT [facility] Profile.[id number] Name Value Range Interpretation Description Data Sup porting Code Source(s) Document(s ) Alanine 7-30 <content [facility] aminotransferase styleCode="Bold"> [facility] [Enzymatic Alanine Medical activity/volume] Aminotransferase Center in Serum or Plasma (ALT) </content>16 IU/L<content styleCode="Italic s"> (7-30 IU/L)</content> Aspartate 14-36 <content [facility] aminotransferase styleCode="Bold"> [facility] [Enzymatic Aspartate Medical activity/volume] Aminotransferase Center in Serum or Plasma (AST) </content>26 IU/L<content styleCode="Italic s"> (14-36 IU/L)</content> Alkaline 38-126 <content [facility] phosphatase styleCode="Bold"> Gena [Enzymatic Alkaline Medical activity/volume] Phosphatase (ALP) Cente r in Serum or Plasma </content>59 IU/L<content styleCode="Italic s"> (38-126 IU/L)</content> Albumin 3.5-5.0 <content [facility] [Mass/volume] in styleCode="Bold"> [facility] hs Serum or Plasma Albumin Medical </content>4.8 Center G/DL<content styleCode="Italic s"> (3.5-5.0 G/DL)</content> Bilirubin.total 0.2-1.3 <content [facility] [Mass/volume] in styleCode="Bold"> [facility] hs Serum or Plasma Bilirubin Total Medical </content>0.4 Center MG/DL<content styleCode="Italic s"> (0.2-1.3 MG/DL)</content> ID Date Data Source Hormones.[id number] 10/22/2019 06:30:00 AM EDT [facility] Name Value Range Interpretation Description Data Sup porting Code Source(s) Document(s ) Thyrotropin 0.465-4. Above high normal <content [facility] [Units/volume] 68 styleCode="Jacklyn Gena in Serum or d">Thyroid Medical Plasma by [facility] Center Detection Hormone limit <= 0.05 </content>5.47 mIU/L MIU/L H<content styleCode="Tania lics"> (0.465-4.68 MIU/L)</conten t> ID Date Data Source GFR(Creatinine).[id number] 10/22/2019 06:30:00 AM EDT [facility] 0-0400 Name Value Range Interpretation Code Description Data Amee rce(s) Supporting Document(s ) UNK > 60 <content [facility] styleCode="Bold"> Medical Cent er EGFR </content>91 GFR<content styleCode="Italic s"> (> 60 GFR)</content> ID Date Data Source CHMROUTINECCDA.[id number] 10/22/2019 06:30:00 AM EDT [facility] -0400 Name Value Range Interpretation Description Data Sup porting Code Source(s) Document(s ) Protein 6.3-8.2 <content [facility] [Mass/volum styleCode="Bold Medical e] in Serum ">Total Protein Center or Plasma </content>8.1 G/DL<content styleCode="Ital ics"> (6.3-8.2 G/DL)</content> UNK 2.3-3.5 <content [facility] styleCode="Bold Medical ">Globulin Center </content>3.3 G/DL<content styleCode="Ital ics"> (2.3-3.5 G/DL)</content> UNK >= 1.0 <content [facility] styleCode="Bold Medical ">AG Ratio Center </content>1.5 <content styleCode="Ital ics"> (>= 1.0 )</content> ID Date Data Source [facility].[id number] 10/22/2019 06:30:00 AM EDT [facility] Name Value Range Interpretation Description Data Sup porting Code Source(s) Document(s ) Sodium 137-145 <content [facility] [Moles/volume] in styleCode="Bold"> Jasiel phs Serum or Plasma Sodium Medical </content>138 Center MEQ/L<content styleCode="Italic s"> (137-145 MEQ/L)</content> Potassium 3.5-5.3 <content [facility] [Moles/volume] in styleCode="Bold"> Jasiel phs Serum or Plasma Potassium Medical </content>4.1 Center MEQ/L<content styleCode="Italic s"> (3.5-5.3 MEQ/L)</content> Chloride 98-107 <content [facility] [Moles/volume] in styleCode="Bold"> Jasiel phs Serum or Plasma Chloride Medical </content>105 Center MEQ/L<content styleCode="Italic s"> (98-107 MEQ/L)</content> Carbon dioxide, 22-30 <content [facility] total styleCode="Bold"> Gena [Moles/volume] in Carbon Dioxide Medical Serum or Plasma </content>26 Center MEQ/L<content styleCode="Italic s"> (22-30 MEQ/L)</content> Creatinine 0.5-1.3 <content [facility] [Mass/volume] in styleCode="Bold"> [facility] hs Serum or Plasma Creatinine Medical </content>0.9 Center MG/DL<content styleCode="Italic s"> (0.5-1.3 MG/DL)</content> UNK > 60 <content [facility] styleCode="Bold"> Gena EGFR </content>91 Medical GFR<content Center styleCode="Italic s"> (> 60 GFR)</content> UNK 7-17 <content [facility] styleCode="Bold"> Gena BUN </content>14 Medical MG/DL<content Center styleCode="Italic s"> (7-17 MG/DL)</content> Glucose 74-106 <content [facility] [Mass/volume] in styleCode="Bold"> [facility] hs Serum or Plasma Glucose Medical </content>93 Center MG/DL<content styleCode="Italic s"> (74-106 MG/DL)</content> Calcium 8.4-10. <content [facility] [Mass/volume] in 2 styleCode="Bold"> [facility] Serum or Plasma Calcium Medical </content>9.6 Center MG/DL<content styleCode="Italic s"> (8.4-10.2 MG/DL)</content> Alkaline 38-126 <content [facility] phosphatase styleCode="Bold"> [facility] [Enzymatic Alkaline Medical activity/volume] Phosphatase (ALP) Cente r in Serum or Plasma </content>59 IU/L<content styleCode="Italic s"> (38-126 IU/L)</content> Alanine 7-30 <content [facility] aminotransferase styleCode="Bold"> [facility] [Enzymatic Alanine Medical activity/volume] Aminotransferase Center in Serum or Plasma (ALT) </content>16 IU/L<content styleCode="Italic s"> (7-30 IU/L)</content> Aspartate 14-36 <content [facility] aminotransferase styleCode="Bold"> [facility] [Enzymatic Aspartate Medical activity/volume] Aminotransferase Center in Serum or Plasma (AST) </content>26 IU/L<content styleCode="Italic s"> (14-36 IU/L)</content> Albumin 3.5-5.0 <content [facility] [Mass/volume] in styleCode="Bold"> [facility] hs Serum or Plasma Albumin Medical </content>4.8 Center G/DL<content styleCode="Italic s"> (3.5-5.0 G/DL)</content> Bilirubin.total 0.2-1.3 <content [facility] [Mass/volume] in styleCode="Bold"> [facility] hs Serum or Plasma Bilirubin Total Medical </content>0.4 Center MG/DL<content styleCode="Italic s"> (0.2-1.3 MG/DL)</content> ID Date Data Source Urinalysis.[id number] 10/02/2019 08:30:00 PM EDT [facility] 0 Name Value Range Interpretation Description Data Sup porting Code Source(s) Document(s ) Color of Urine YELLOW <content [facility] styleCode="Jacklyn Diazs d">Color, Medical Urine Center </content>YELL OW <content styleCode="Tania lics"> (YELLOW )</content> UNK CLEAR <content [facility] styleCode="Jacklyn Gena d">Urine Medical Clarity Center </content>TURB ID <content styleCode="Tania lics"> (CLEAR )</content> Ketones NEGATIVE <content [facility] [Mass/volume] styleCode="Jacklyn Diazs in Urine by d">Urine Medical Test strip Ketone Center </content>NEGA TIVE MG/DL<content styleCode="Tania lics"> (NEGATIVE MG/DL)</conten t> UNK NEGATIVE <content [facility] styleCode="Jacklyn Gena d">Urine Medical Bilirubin Center </content>NEGA TIVE <content styleCode="Tania lics"> (NEGATIVE )</content> Specific 1.015-1.02 Above high <content [facility] gravity of 5 normal styleCode="Jacklyn Diazs Urine by Test d">Urine Medical strip Specific Center [place] </content>>= 1.030 H<content styleCode="Tania lics"> (1.015-1.025 )</content> Glucose NEGATIVE <content [facility] [Mass/volume] styleCode="Jacklyn Diazs in Urine by d">Urine Medical Test strip Glucose Center </content>NEGA TIVE MG/DL<content styleCode="Tania lics"> (NEGATIVE MG/DL)</conten t> Urobilinogen 0.2-1.0 <content [facility] [Units/volume] styleCode="Jacklyn Gena in Urine by d">Urine Medical Test strip Urobilinogen Center </content>0.2 MG/DL<content styleCode="Tania lics"> (0.2-1.0 MG/DL)</conten t> pH of Urine by 4.5-8.0 <content [facility] Test strip styleCode="Jacklyn Gena d">Urine pH Medical </content>6.0 Center <content styleCode="Tania lics"> (4.5-8.0 )</content> Hemoglobin NEGATIVE <content [facility] [Presence] in styleCode="Jacklyn Avery Urine by Test d">Urine Blood Medical strip </content>SMAL Center L <content styleCode="Tania lics"> (NEGATIVE )</content> Protein NEGATIVE <content [facility] [Mass/volume] styleCode="Jacklyn Avery in Urine by d">Urine Medical Test strip Protein Center </content>30 MG/DL<content styleCode="Tania lics"> (NEGATIVE MG/DL)</conten t> Nitrite NEGATIVE <content [facility] [Presence] in styleCode="Jacklyn Avery Urine by Test d">Urine Medical strip Nitrite Center </content>NEGA TIVE <content styleCode="Tania lics"> (NEGATIVE )</content> Leukocyte NEGATIVE <content [facility] esterase styleCode="Jacklyn Avery [Presence] in d">Urine Medical Urine by Test Leukocyte Center strip </content>NEGA TIVE <content styleCode="Tania lics"> (NEGATIVE )</content> UNK 0-3 <content [facility] styleCode="Jacklyn Diazs d">Urine Red Medical Blood Cell Center </content>3-5 HPF<content styleCode="Tania lics"> (0-3 HPF)</content> UNK 0-3 <content [facility] styleCode="Jacklyn Gena d">Urine White Medical Blood Cell Center </content>0-3 HPF<content styleCode="Tania lics"> (0-3 HPF)</content> UNK NONE SEEN <content [facility] styleCode="Jacklyn Gena d">Epithelial Medical Cell Center </content>> 50 HPF<content styleCode="Tania lics"> (NONE SEEN HPF)</content> UNK NONE SEEN <content [facility] styleCode="Jacklyn Gena d">Yeast Cell Medical </content>FEW Center HPF<content styleCode="Tania lics"> (NONE SEEN HPF)</content> ID Date Data Source CHMROUTINECCDA.[id number] 10/02/2019 08:30:00 PM EDT [facility] -0400 Name Value Range Interpretation Description Data Sup porting Code Source(s) Document(s ) Cannabinoids <content [facility] [Presence] in styleCode="Jacklyn [facility] Urine by Screen d">Cannabinoid Medical method >50 ng/mL s Center </content>NEGA TIVE NG/ML (Reference Range: not available)<br/ > ID Date Data Source Liver 10/02/2019 06:02:00 PM EDT [facility] Profile.[id number] Name Value Range Interpretation Description Data Sup porting Code Source(s) Document(s ) Alkaline 38-126 <content [facility] phosphatase styleCode="Bold"> [facility] [Enzymatic Alkaline Medical activity/volume] Phosphatase (ALP) Cente r in Serum or Plasma </content>43 IU/L<content styleCode="Italic s"> (38-126 IU/L)</content> Bilirubin.total 0.2-1.3 <content [facility] [Mass/volume] in styleCode="Bold"> [facility] Serum or Plasma Bilirubin Total Medical </content>0.4 Center MG/DL<content styleCode="Italic s"> (0.2-1.3 MG/DL)</content> Aspartate 14-36 <content [facility] aminotransferase styleCode="Bold"> [facility] [Enzymatic Aspartate Medical activity/volume] Aminotransferase Center in Serum or Plasma (AST) </content>22 IU/L<content styleCode="Italic s"> (14-36 IU/L)</content> Alanine 7-30 <content [facility] aminotransferase styleCode="Bold"> [facility] [Enzymatic Alanine Medical activity/volume] Aminotransferase Center in Serum or Plasma (ALT) </content>11 IU/L<content styleCode="Italic s"> (7-30 IU/L)</content> Albumin 3.5-5.0 <content [facility] [Mass/volume] in styleCode="Bold"> [facility] hs Serum or Plasma Albumin Medical </content>4.4 Center G/DL<content styleCode="Italic s"> (3.5-5.0 G/DL)</content> UNK 0.0-0.3 <content [facility] styleCode="Bold"> Gena Bilirubin, Direct Medical </content>< 0.2 Center MG/DL<content styleCode="Italic s"> (0.0-0.3 MG/DL)</content> ID Date Data Source LIPID.[id number] 10/02/2019 06:02:00 PM EDT [facility] Name Value Range Interpretation Description Data Sup porting Code Source(s) Document(s ) Triglyceride < 150 <content [facility] [Mass/volume] in styleCode="Jacklyn Gena Serum or Plasma d">Triglycerid Medical es Center </content>53 MG/DL<content styleCode="Tania lics"> (< 150 MG/DL)</conten t> Cholesterol -<200 <content [facility] [Mass/volume] in styleCode="Jacklyn Gena Serum or Plasma d">Cholesterol Medical </content>129 Center MG/DL<content styleCode="Tania lics"> (-<200 MG/DL)</conten t> Cholesterol -<200 <content [facility] [Mass/volume] in styleCode="Jacklyn Gena Serum or Plasma d">Cholesterol Medical </content>128 Center MG/DL<content styleCode="Tania lics"> (-<200 MG/DL)</conten t> Triglyceride < 150 <content [facility] [Mass/volume] in styleCode="Jacklyn Gena Serum or Plasma d">Triglycerid Medical es Center </content>53 MG/DL<content styleCode="Tania lics"> (< 150 MG/DL)</conten t> UNK > 60 <content [facility] styleCode="Jacklyn Gena d">HDL- Medical Cholesterol Center </content>78 MG/DL<content styleCode="Tania lics"> (> 60 MG/DL)</conten t> UNK < 100 <content [facility] styleCode="Jacklyn Gena d">LDL-Cholest Medical bhumika Center </content>40 MG/DL<content styleCode="Tania lics"> (< 100 MG/DL)</conten t> UNK > 60 <content [facility] styleCode="Jacklyn Gena d">HDL- Medical Cholesterol Center </content>75 MG/DL<content styleCode="Tania lics"> (> 60 MG/DL)</conten t> UNK < 100 <content [facility] styleCode="Jacklyn Gena d">LDL-Cholest Medical bhumika Center </content>42 MG/DL<content styleCode="Tania lics"> (< 100 MG/DL)</conten t> ID Date Data Source HematologyRou.[id number] 10/02/2019 06:02:00 PM EDT [facility] 0400 Name Value Range Interpretation Description Data Sup porting Code Source(s) Document(s ) Leukocytes 4.4-11.0 Below low normal <content [facility] [#/volume] in styleCode="Bold Gena Blood by ">White Blood Medical Automated count Cell Count Center </content>3.75 KCUMM L<content styleCode="Ital ics"> (4.4-11.0 KCUMM)</content > Erythrocytes 4.0-5.1 Below low normal <content [facility] [#/volume] in styleCode="Bold Gena Blood by ">Red Blood Medical Automated count Cell Count Center </content>3.33 MCUMM L<content styleCode="Ital ics"> (4.0-5.1 MCUMM)</content > Erythrocyte mean 80.0-100 <content [facility] corpuscular .0 styleCode="Bold Gena volume [Entitic ">Mean Medical volume] by Corpuscular Center Automated count Volume </content>87.1 FL<content styleCode="Ital ics"> (80.0-100.0 FL)</content> Hematocrit 36.0-46. Below low normal <content [facility] [Volume 0 styleCode="Bold Gena Fraction] of ">Hematocrit Medical Blood by </content>29.0 Center Automated count % L<content styleCode="Ital ics"> (36.0-46.0 %)</content> Hemoglobin 12.3-16. Below low normal <content [facility] [Mass/volume] in 0 styleCode="Bold Gena Blood ">Hemoglobin Medical </content>9.3 Center G/DL L<content styleCode="Ital ics"> (12.3-16.0 G/DL)</content> Erythrocyte mean 26.0-34. <content [facility] corpuscular 0 styleCode="Bold Gena hemoglobin ">Mean Medical [Entitic mass] Corposcular Center by Automated Hemoglobin count </content>27.9 PG<content styleCode="Ital ics"> (26.0-34.0 PG)</content> Erythrocyte 11.5-14. Above high <content [facility] distribution 5 normal styleCode="Bold Gena width [Ratio] by ">Red Cell Medical Automated count Distribution Center Width </content>14.6 % H<content styleCode="Ital ics"> (11.5-14.5 %)</content> Platelet mean 8.0-11.0 Above high <content [facility] volume [Entitic normal styleCode="Bold Gena volume] in Blood ">Mean Platelet Medical by Automated Volume Center count </content>11.5 FL H<content styleCode="Ital ics"> (8.0-11.0 FL)</content> Erythrocyte mean 32.0-37. <content [facility] corpuscular 0 styleCode="Bold Gena hemoglobin ">Mean Corpus. Medical concentration Hgb Center [Mass/volume] by Concentration Automated count (MCHC) </content>32.1 G/DL<content styleCode="Ital ics"> (32.0-37.0 G/DL)</content> Platelets 130-400 <content [facility] [#/volume] in styleCode="Bold Gena Blood by ">Platelet Medical Automated count Count Center </content>192 KCUMM<content styleCode="Ital ics"> (130-400 KCUMM)</content > UNK 0 <content [facility] styleCode="Bold Gena ">Nucleated Red Medical Blood Cell Center </content>0.0 /100<content styleCode="Ital ics"> (0 /100)</content> UNK 0.0 <content [facility] styleCode="Bold Gena ">Nucleated Red Medical Blood Cell Center Count </content>0.00 KCUMM<content styleCode="Ital ics"> (0.0 KCUMM)</content > ID Date Data Source GFR(Creatinine).[id number] 10/02/2019 06:02:00 PM EDT [facility] 0-0400 Name Value Range Interpretation Code Description Data Amee rce(s) Supporting Document(s ) UNK > 60 <content [facility] styleCode="Bold"> Medical Cent er EGFR </content>104 GFR<content styleCode="Italic s"> (> 60 GFR)</content> ID Date Data Source SAMSONMROUTINECCDA.[id number] 10/02/2019 06:02:00 PM EDT [facility] -0400 Name Value Range Interpretation Code Description Data Amee rce(s) Supporting Document(s ) UNK 4.2-5.8 <content [facility] styleCode="Bold" Medical Cente r >Hemoglobin A1C </content>5.1 %<content styleCode="Itali cs"> (4.2-5.8 %)</content> ID Date Data Source [facility].[id number] 10/02/2019 06:02:00 PM EDT [facility] Name Value Range Interpretation Description Data Sup porting Code Source(s) Document(s ) Sodium 137-145 <content [facility] [Moles/volume] in styleCode="Bold"> Jasiel phs Serum or Plasma Sodium Medical </content>139 Center MEQ/L<content styleCode="Italic s"> (137-145 MEQ/L)</content> Carbon dioxide, 22-30 <content [facility] total styleCode="Bold"> Gena [Moles/volume] in Carbon Dioxide Medical Serum or Plasma </content>24 Center MEQ/L<content styleCode="Italic s"> (22-30 MEQ/L)</content> Potassium 3.5-5.3 Below low <content [facility] [Moles/volume] in normal styleCode="Bold"> Jasiel phs Serum or Plasma Potassium Medical </content>3.2 Center MEQ/L L<content styleCode="Italic s"> (3.5-5.3 MEQ/L)</content> Chloride 98-107 <content [facility] [Moles/volume] in styleCode="Bold"> Jasiel phs Serum or Plasma Chloride Medical </content>106 Center MEQ/L<content styleCode="Italic s"> (98-107 MEQ/L)</content> Calcium 8.4-10. <content [facility] [Mass/volume] in 2 styleCode="Bold"> [facility]arshal hs Serum or Plasma Calcium Medical </content>9.3 Center MG/DL<content styleCode="Italic s"> (8.4-10.2 MG/DL)</content> UNK > 60 <content [facility] styleCode="Bold"> Gena EGFR Medical </content>104 Center GFR<content styleCode="Italic s"> (> 60 GFR)</content> Glucose 74-106 <content [facility] [Mass/volume] in styleCode="Bold"> [facility] hs Serum or Plasma Glucose Medical </content>86 Center MG/DL<content styleCode="Italic s"> (74-106 MG/DL)</content> UNK 7-17 <content [facility] styleCode="Bold"> Gena BUN </content>7 Medical MG/DL<content Center styleCode="Italic s"> (7-17 MG/DL)</content> Creatinine 0.5-1.3 <content [facility] [Mass/volume] in styleCode="Bold"> [facility]arshal hs Serum or Plasma Creatinine Medical </content>0.8 Center MG/DL<content styleCode="Italic s"> (0.5-1.3 MG/DL)</content> Albumin 3.5-5.0 <content [facility] [Mass/volume] in styleCode="Bold"> [facility]arshal hs Serum or Plasma Albumin Medical </content>4.4 Center G/DL<content styleCode="Italic s"> (3.5-5.0 G/DL)</content> Alanine 7-30 <content [facility] aminotransferase styleCode="Bold"> [facility] [Enzymatic Alanine Medical activity/volume] Aminotransferase Center in Serum or Plasma (ALT) </content>11 IU/L<content styleCode="Italic s"> (7-30 IU/L)</content> Bilirubin.total 0.2-1.3 <content [facility] [Mass/volume] in styleCode="Bold"> [facility]arshal hs Serum or Plasma Bilirubin Total Medical </content>0.4 Center MG/DL<content styleCode="Italic s"> (0.2-1.3 MG/DL)</content> Aspartate 14-36 <content [facility] aminotransferase styleCode="Bold"> [facility] [Enzymatic Aspartate Medical activity/volume] Aminotransferase Center in Serum or Plasma (AST) </content>22 IU/L<content styleCode="Italic s"> (14-36 IU/L)</content> Alkaline 38-126 <content [facility] phosphatase styleCode="Bold"> [facility] [Enzymatic Alkaline Medical activity/volume] Phosphatase (ALP) Cente r in Serum or Plasma </content>43 IU/L<content styleCode="Italic s"> (38-126 IU/L)</content> ID Date Data Source [id number] 10/02/2019 12:00:00 AM EDT [facility] Name Value Range Interpretation Code Description Data Amee rce(s) Supporting Document(s ) 2018-nCoV [facility] RNA XXX SHANNON+probe- Imp This lab was ordered by [facility] and reported by [employer] NTD. ID Date Data Source HematologySpeci.[id number] 11/26/2018 06:20:00 AM EDT [facility] 0-0400 Name Value Range Interpretation Description Data Sup porting Code Source(s) Document(s ) Erythrocyte < 20 <content [facility] sedimentation styleCode="Bold" Gena rate by >[facility]rythrocyte [facility] method Rate (ESR) </content>10 MM/hr<content styleCode="Itali cs"> (< 20 MM/hr)</content> ID Date Data Source HematologyRou.[id number] 11/26/2018 06:20:00 AM EDT [facility] 0400 Name Value Range Interpretation Description Data Sup porting Code Source(s) Document(s ) Leukocytes 4.4-11.0 Below low normal <content [facility] [#/volume] in styleCode="Bold Gena Blood by ">White Blood Medical Automated count Cell Count Center </content>3.35 KCUMM L<content styleCode="Ital ics"> (4.4-11.0 KCUMM)</content > Hemoglobin 12.3-16. Below low normal <content [facility] [Mass/volume] in 0 styleCode="Bold Gena Blood ">Hemoglobin Medical </content>9.8 Center G/DL L<content styleCode="Ital ics"> (12.3-16.0 G/DL)</content> Erythrocytes 4.0-5.1 Below low normal <content [facility] [#/volume] in styleCode="Bold Gena Blood by ">Red Blood Medical Automated count Cell Count Center </content>3.52 MCUMM L<content styleCode="Ital ics"> (4.0-5.1 MCUMM)</content > Erythrocyte mean 26.0-34. <content [facility] corpuscular 0 styleCode="Bold Gena hemoglobin ">Mean Medical [Entitic mass] Corposcular Center by Automated Hemoglobin count </content>27.8 PG<content styleCode="Ital ics"> (26.0-34.0 PG)</content> Erythrocyte mean 32.0-37. Below low normal <content [facility] corpuscular 0 styleCode="Bold Gena hemoglobin ">Mean Corpus. Medical concentration Hgb Center [Mass/volume] by Concentration Automated count (MCHC) </content>31.2 G/DL L<content styleCode="Ital ics"> (32.0-37.0 G/DL)</content> Erythrocyte mean 80.0-100 <content [facility] corpuscular .0 styleCode="Bold Gena volume [Entitic ">Mean Medical volume] by Corpuscular Center Automated count Volume </content>89.2 FL<content styleCode="Ital ics"> (80.0-100.0 FL)</content> Hematocrit 36.0-46. Below low normal <content [facility] [Volume 0 styleCode="Bold Gena Fraction] of ">Hematocrit Medical Blood by </content>31.4 Center Automated count % L<content styleCode="Ital ics"> (36.0-46.0 %)</content> Erythrocyte 11.5-14. Above high <content [facility] distribution 5 normal styleCode="Bold Gena width [Ratio] by ">Red Cell Medical Automated count Distribution Center Width </content>15.0 % H<content styleCode="Ital ics"> (11.5-14.5 %)</content> Lymphocytes 24.0-44. Above high <content [facility] [#/volume] in 0 normal styleCode="Bold Gena Blood by ">Lymphocyte Medical Automated count </content>55.2 Center % H<content styleCode="Ital ics"> (24.0-44.0 %)</content> Neutrophils 36-66 Below low normal <content [facility] [#/volume] in styleCode="Bold Gena Blood by ">Neutrophil Medical Automated count </content>30.2 Center % L<content styleCode="Ital ics"> (36-66 %)</content> UNK 1.6-7.3 Below low normal <content [facility] styleCode="Bold Gena ">Neutrophil Medical Count Center </content>1.01 KCUMM L<content styleCode="Ital ics"> (1.6-7.3 KCUMM)</content > Platelets 130-400 <content [facility] [#/volume] in styleCode="Bold Gena Blood by ">Platelet Medical Automated count Count Center </content>236 KCUMM<content styleCode="Ital ics"> (130-400 KCUMM)</content > Platelet mean 8.0-11.0 Above high <content [facility] volume [Entitic normal styleCode="Bold Gena volume] in Blood ">Mean Platelet Medical by Automated Volume Center count </content>11.6 FL H<content styleCode="Ital ics"> (8.0-11.0 FL)</content> Monocytes 3.0-10.0 Above high <content [facility] [#/volume] in normal styleCode="Bold Gena Blood by ">Monocyte Medical Automated count </content>10.4 Center % H<content styleCode="Ital ics"> (3.0-10.0 %)</content> Eosinophils 0-5.0 <content [facility] [#/volume] in styleCode="Bold Gena Blood by ">Eosinophil Medical Automated count </content>3.0 Center %<content styleCode="Ital ics"> (0-5.0 %)</content> UNK 0.2-0.9 <content [facility] styleCode="Bold Gena ">Monocyte Medical Count Center </content>0.35 KCUMM<content styleCode="Ital ics"> (0.2-0.9 KCUMM)</content > UNK 1.0-4.8 <content [facility] styleCode="Bold Gena ">Lymphocyte Medical Count Center </content>1.85 KCUMM<content styleCode="Ital ics"> (1.0-4.8 KCUMM)</content > UNK 0.0-0.3 <content [facility] styleCode="Bold Gena ">Basophil Medical Count Center </content>0.02 KCUMM<content styleCode="Ital ics"> (0.0-0.3 KCUMM)</content > UNK 0.0-0.6 <content [facility] styleCode="Bold Gena ">Eosinophil Medical Count Center </content>0.10 KCUMM<content styleCode="Ital ics"> (0.0-0.6 KCUMM)</content > UNK 0 <content [facility] styleCode="Bold Gena ">Nucleated Red Medical Blood Cell Center </content>0.0 /100<content styleCode="Ital ics"> (0 /100)</content> UNK 0.0 <content [facility] styleCode="Bold Gena ">Nucleated Red Medical Blood Cell Center Count </content>0.00 KCUMM<content styleCode="Ital ics"> (0.0 KCUMM)</content > Basophils 0.0-1.0 <content [facility] [#/volume] in styleCode="Bold Gena Blood by ">Basophil Medical Automated count </content>0.6 Center %<content styleCode="Ital ics"> (0.0-1.0 %)</content> UNK < 1 <content [facility] styleCode="Bold Gena ">Immature Medical Granulocyte Center Ratio </content>0.6 %<content styleCode="Ital ics"> (< 1 %)</content> UNK 0-0.1 <content [facility] styleCode="Bold Gena ">Immature Medical Granulocyte Center Count </content>0.02 KCUMM<content styleCode="Ital ics"> (0-0.1 KCUMM)</content > ID Date Data Source HematologySpeci.[id number] 11/22/2018 06:22:00 AM EDT [facility] 0-0400 Name Value Range Interpretation Description Data Sup porting Code Source(s) Document(s ) C reactive < 3.0 <content [facility] protein styleCode="Bold Medical [Mass/volume ">C-Reactive Center ] in Serum Protein or Plasma </content>0.23 MG/L<content styleCode="Ital ics"> (< 3.0 MG/L)</content> ID Date Data Source CHMROUTINECCDA.[id number] 11/22/2018 06:22:00 AM EDT [facility] -0400 Name Value Range Interpretation Description Data Sup porting Code Source(s) Document(s ) Lactate 316-618 <content [facility] dehydrogenase styleCode="Bold [facility] [Enzymatic ">Lactate Medical activity/volume] Dehydrogenase Center in Serum or (LDH) Plasma by </content>450 Pyruvate to IU/L<content lactate reaction styleCode="Ital ics"> (316-618 IU/L)</content> Ferritin 11-264 Below low normal <content [facility] [Mass/volume] in styleCode="Bold Gena Serum or Plasma ">Ferritin Medical </content>7.55 Center NG/ML L<content styleCode="Ital ics"> (11-264 NG/ML)</content > ID Date Data Source Hormones.[id number] 11/15/2018 01:06:00 PM EDT [facility] Name Value Range Interpretation Description Data Sup porting Code Source(s) Document(s ) Thyrotropin 0.465-4. <content [facility] [Units/volume] 68 styleCode="Jacklyn Gena in Serum or d">Thyroid Medical Plasma by Stimulating Center Detection Hormone limit <= 0.05 </content>2.42 mIU/L MIU/L<content styleCode="Tania lics"> (0.465-4.68 MIU/L)</conten t> Thyroxine (T4) 0.78-2.1 Below low normal <content [facility] free 9 styleCode="Jacklyn Gena [Mass/volume] d">T4 Free Medical in Serum or </content>0.73 Center Plasma NG/DL L<content styleCode="Tania lics"> (0.78-2.19 NG/DL)</conten t> ID Date Data Source HematologyRou.[id number] 11/15/2018 01:06:00 PM EDT [facility] 0400 Name Value Range Interpretation Description Data Sup porting Code Source(s) Document(s ) Leukocytes 4.4-11.0 Below low normal <content [facility] [#/volume] in styleCode="Bold Gena Blood by ">White Blood Medical Automated count Cell Count Center </content>3.93 KCUMM L<content styleCode="Ital ics"> (4.4-11.0 KCUMM)</content > Hematocrit 36.0-46. Below low normal <content [facility] [Volume 0 styleCode="Bold Gena Fraction] of ">Hematocrit Medical Blood by </content>31.3 Center Automated count % L<content styleCode="Ital ics"> (36.0-46.0 %)</content> Hemoglobin 12.3-16. Below low normal <content [facility] [Mass/volume] in 0 styleCode="Bold Gena Blood ">Hemoglobin Medical </content>10.1 Center G/DL L<content styleCode="Ital ics"> (12.3-16.0 G/DL)</content> Erythrocytes 4.0-5.1 Below low normal <content [facility] [#/volume] in styleCode="Bold Gena Blood by ">Red Blood Medical Automated count Cell Count Center </content>3.54 MCUMM L<content styleCode="Ital ics"> (4.0-5.1 MCUMM)</content > Erythrocyte mean 26.0-34. <content [facility] corpuscular 0 styleCode="Bold Gena hemoglobin ">Mean Medical [Entitic mass] Corposcular Center by Automated Hemoglobin count </content>28.5 PG<content styleCode="Ital ics"> (26.0-34.0 PG)</content> Erythrocyte mean 80.0-100 <content [facility] corpuscular .0 styleCode="Bold Gena volume [Entitic ">Mean Medical volume] by Corpuscular Center Automated count Volume </content>88.4 FL<content styleCode="Ital ics"> (80.0-100.0 FL)</content> Erythrocyte mean 32.0-37. <content [facility] corpuscular 0 styleCode="Bold Gena hemoglobin ">Mean Corpus. Medical concentration Hgb Center [Mass/volume] by Concentration Automated count (MCHC) </content>32.3 G/DL<content styleCode="Ital ics"> (32.0-37.0 G/DL)</content> Platelets 130-400 <content [facility] [#/volume] in styleCode="Bold Gena Blood by ">Platelet Medical Automated count Count Center </content>195 KCUMM<content styleCode="Ital ics"> (130-400 KCUMM)</content > Erythrocyte 11.5-14. Above high <content [facility] distribution 5 normal styleCode="Bold Gena width [Ratio] by ">Red Cell Medical Automated count Distribution Center Width </content>14.8 % H<content styleCode="Ital ics"> (11.5-14.5 %)</content> Lymphocytes 24.0-44. <content [facility] [#/volume] in 0 styleCode="Bold Gena Blood by ">Lymphocyte Medical Automated count </content>29.0 Center %<content styleCode="Ital ics"> (24.0-44.0 %)</content> UNK 1.6-7.3 <content [facility] styleCode="Bold Gena ">Neutrophil Medical Count Center </content>2.24 KCUMM<content styleCode="Ital ics"> (1.6-7.3 KCUMM)</content > Platelet mean 8.0-11.0 Above high <content [facility] volume [Entitic normal styleCode="Bold Gena volume] in Blood ">Mean Platelet Medical by Automated Volume Center count </content>11.2 FL H<content styleCode="Ital ics"> (8.0-11.0 FL)</content> Neutrophils 36-66 <content [facility] [#/volume] in styleCode="Bold Gena Blood by ">Neutrophil Medical Automated count </content>57.0 Center %<content styleCode="Ital ics"> (36-66 %)</content> UNK 0.2-0.9 <content [facility] styleCode="Bold Gena ">Monocyte Medical Count Center </content>0.42 KCUMM<content styleCode="Ital ics"> (0.2-0.9 KCUMM)</content > Eosinophils 0-5.0 <content [facility] [#/volume] in styleCode="Bold Gena Blood by ">Eosinophil Medical Automated count </content>2.5 Center %<content styleCode="Ital ics"> (0-5.0 %)</content> UNK 1.0-4.8 <content [facility] styleCode="Bold Gena ">Lymphocyte Medical Count Center </content>1.14 KCUMM<content styleCode="Ital ics"> (1.0-4.8 KCUMM)</content > UNK 0.0-0.6 <content [facility] styleCode="Bold Gena ">Eosinophil Medical Count Center </content>0.10 KCUMM<content styleCode="Ital ics"> (0.0-0.6 KCUMM)</content > Monocytes 3.0-10.0 Above high <content [facility] [#/volume] in normal styleCode="Bold Gena Blood by ">Monocyte Medical Automated count </content>10.7 Center % H<content styleCode="Ital ics"> (3.0-10.0 %)</content> UNK 0.0 <content [facility] styleCode="Bold Gena ">Nucleated Red Medical Blood Cell Center Count </content>0.00 KCUMM<content styleCode="Ital ics"> (0.0 KCUMM)</content > UNK 0.0-0.3 <content [facility] styleCode="Bold Gnea ">Basophil Medical Count Center </content>0.02 KCUMM<content styleCode="Ital ics"> (0.0-0.3 KCUMM)</content > Basophils 0.0-1.0 <content [facility] [#/volume] in styleCode="Bold Gena Blood by ">Basophil Medical Automated count </content>0.5 Center %<content styleCode="Ital ics"> (0.0-1.0 %)</content> UNK 0 <content [facility] styleCode="Bold Gena ">Nucleated Red Medical Blood Cell Center </content>0.0 /100<content styleCode="Ital ics"> (0 /100)</content> UNK 0-0.1 <content [facility] styleCode="Bold Gena ">Immature Medical Granulocyte Center Count </content>0.01 KCUMM<content styleCode="Ital ics"> (0-0.1 KCUMM)</content > UNK < 1 <content [facility] styleCode="Bold Gena ">Immature Medical Granulocyte Center Ratio </content>0.3 %<content styleCode="Ital ics"> (< 1 %)</content> ID Date Data Source ChemistrySpecia.[id number] 11/15/2018 01:06:00 PM EDT [facility] 0-0400 Name Value Range Interpretation Description Data Sup porting Code Source(s) Document(s ) Folate > 3.0 <content [facility] [Mass/volume] styleCode="Jacklyn Gena in Serum or d">Folic Acid Medical Plasma </content>10.2 Center NG/ML<content styleCode="Tania lics"> (> 3.0 NG/ML)</conten t> Cobalamin 239-931 <content Saint (Vitamin B12) styleCode="Jacklyn Gena [Mass/volume] d">Vitamin B12 Medical in Serum or </content>292 Center Plasma PG/ML<content styleCode="Tania lics"> (239-931 PG/ML)</conten t> ID Date Data Source MARYURI.[id number] 11/15/2018 01:06:00 PM EDT [facility] -0400 Name Value Range Interpretation Description Data Sup porting Code Source(s) Document(s ) Folate > 3.0 <content [facility] [Mass/volu styleCode="Bold Medical me] in ">Folic Acid Center Serum or </content>10.2 Plasma NG/ML<content styleCode="Ital ics"> (> 3.0 NG/ML)</content > Iron 37-170 <content [facility] [Mass/volu styleCode="Bold Medical me] in ">Iron Center Serum or </content>43 Plasma UG/DL<content styleCode="Ital ics"> (37-170 UG/DL)</content > UNK 265-497 <content [facility] styleCode="Bold Medical ">TIBC Center </content>390 UG/DL<content styleCode="Ital ics"> (265-497 UG/DL)</content > ID Date Data Source Hormones.[id number] 11/14/2018 01:00:00 PM EDT [facility] Name Value Range Interpretation Code Description Data Amee rce(s) Supporting Document(s ) UNK Above high normal <content [facility] styleCode="Bold"> Medical Cent er Prolactin </content>182.8 ng/mL H (Reference Range: not available)
ID Date Data Source LIPID.[id number] 11/07/2018 01:15:00 PM EDT [facility] Name Value Range Interpretation Description Data Sup porting Code Source(s) Document(s ) Triglyceride < 150 Above high normal <content [facility] [Mass/volume] in styleCode="[facility] Serum or Plasma d">Triglycerid Medical Center [facility] </content>152 MG/DL H<content styleCode="Tania lics"> (< 150 MG/DL)</conten t> Cholesterol -<200 <content [facility] [Mass/volume] in styleCode="Jacklyn [facility] Serum or Plasma d">Cholesterol Medical </content>157 Center MG/DL<content styleCode="Tania lics"> (-<200 MG/DL)</conten t> UNK > 60 <content [facility] styleCode="Jacklyn Gena d">HDL- Medical Cholesterol Center </content>69 MG/DL<content styleCode="Tania lics"> (> 60 MG/DL)</conten t> UNK < 100 <content [facility] styleCode="Jacklyn Gena d">LDL-Cholest Medical bhumika Center </content>58 MG/DL<content styleCode="Tania lics"> (< 100 MG/DL)</conten t> ID Date Data Source Hormones.[id number] 11/07/2018 01:15:00 PM EDT [facility] Name Value Range Interpretation Description Data Sup porting Code Source(s) Document(s ) UNK 5.53-11. Below low normal <content [facility] 0 styleCode="Jacklyn Gena d">Thyroxine Medical (T4) Center </content>5.15 UG/DL L<content styleCode="Tania lics"> (5.53-11.0 UG/DL)</conten t> Thyrotropin 0.465-4. <content [facility] [Units/volume] 68 styleCode="Jacklyn Gena in Serum or d">Thyroid Medical Plasma by Stimulating Center Detection Hormone limit <= 0.05 </content>1.37 mIU/L MIU/L<content styleCode="Tania lics"> (0.465-4.68 MIU/L)</conten t> ID Date Data Source ChemistrySpecia.[id number] 11/07/2018 01:15:00 PM EDT [facility] 0-0400 Name Value Range Interpretation Description Data Sup porting Code Source(s) Document(s ) Folate > 3.0 <content [facility] [Mass/volume] styleCode="Jacklyn Gena in Serum or d">Folic Acid Medical Plasma </content>8.34 Center NG/ML<content styleCode="Tania lics"> (> 3.0 NG/ML)</conten t> Cobalamin 239-931 Below low normal <content [facility] (Vitamin B12) styleCode="Jacklyn Gena [Mass/volume] d">Vitamin B12 Medical in Serum or </content>229 Center Plasma PG/ML L<content styleCode="Tania lics"> (239-931 PG/ML)</conten t> ID Date Data Source SAMSONMRMARCIANO.[id number] 11/07/2018 01:15:00 PM EDT [facility] Name Value Range Interpretation Description Data Sup porting Code Source(s) Document(s ) Folate > 3.0 <content [facility] [Mass/volu styleCode="Bold Medical me] in ">Folic Acid Center Serum or </content>8.34 Plasma NG/ML<content styleCode="Ital ics"> (> 3.0 NG/ML)</content > UNK 4.2-5.8 <content [facility] styleCode="Bold Medical ">Hemoglobin Center A1C </content>5.2 %<content styleCode="Ital ics"> (4.2-5.8 %)</content> ID Date Data Source Liver 11/01/2018 03:19:00 PM EDT [facility] Profile.[id number] Name Value Range Interpretation Description Data Sup porting Code Source(s) Document(s ) Alanine 7-30 <content [facility] aminotransferase styleCode="Bold"> Harshal hs [Enzymatic Alanine Medical activity/volume] Aminotransferase Center in Serum or Plasma (ALT) </content>14 IU/L<content styleCode="Italic s"> (7-30 IU/L)</content> Aspartate 14-36 <content [facility] aminotransferase styleCode="Bold"> Harshal hs [Enzymatic Aspartate Medical activity/volume] Aminotransferase Center in Serum or Plasma (AST) </content>21 IU/L<content styleCode="Italic s"> (14-36 IU/L)</content> UNK 0.0-0.3 <content [facility] styleCode="Bold"> Gena Bilirubin, Direct Medical </content>< 0.2 Center MG/DL<content styleCode="Italic s"> (0.0-0.3 MG/DL)</content> Alkaline 38-126 <content [facility] phosphatase styleCode="Bold"> Gena [Enzymatic Alkaline Medical activity/volume] Phosphatase (ALP) Cente r in Serum or Plasma </content>56 IU/L<content styleCode="Italic s"> (38-126 IU/L)</content> Albumin 3.5-5.0 <content [facility] [Mass/volume] in styleCode="Bold"> Harshal hs Serum or Plasma Albumin Medical </content>4.9 Center G/DL<content styleCode="Italic s"> (3.5-5.0 G/DL)</content> Bilirubin.total 0.2-1.3 <content [facility] [Mass/volume] in styleCode="Bold"> Harshal hs Serum or Plasma Bilirubin Total Medical </content>0.3 Center MG/DL<content styleCode="Italic s"> (0.2-1.3 MG/DL)</content> ID Date Data Source HematologyRou.[id number] 11/01/2018 03:19:00 PM EDT [facility] 0400 Name Value Range Interpretation Description Data Sup porting Code Source(s) Document(s ) Hematocrit 36.0-46. Below low normal <content [facility] [Volume 0 styleCode="Bold [facility] Fraction] of ">Hematocrit Medical Blood by </content>32.3 Center Automated count % L<content styleCode="Ital ics"> (36.0-46.0 %)</content> Leukocytes 4.4-11.0 Below lower <content [facility] [#/volume] in panic limits styleCode="Bold [facility] Blood by ">White Blood Medical Automated count Cell Count Center </content><cont ent styleCode="Bold ">2.49 KCUMM LL</content><co ntent styleCode="Ital ics"> (4.4-11.0 KCUMM)</content > Erythrocytes 4.0-5.1 Below low normal <content [facility] [#/volume] in styleCode="Bold Gena Blood by ">Red Blood Medical Automated count Cell Count Center </content>3.72 MCUMM L<content styleCode="Ital ics"> (4.0-5.1 MCUMM)</content > Hemoglobin 12.3-16. Below low normal <content [facility] [Mass/volume] in 0 styleCode="Bold Gena Blood ">Hemoglobin Medical </content>10.4 Center G/DL L<content styleCode="Ital ics"> (12.3-16.0 G/DL)</content> Erythrocyte mean 80.0-100 <content [facility] corpuscular .0 styleCode="Bold Gena volume [Entitic ">Mean Medical volume] by Corpuscular Center Automated count Volume </content>86.8 FL<content styleCode="Ital ics"> (80.0-100.0 FL)</content> Erythrocyte mean 32.0-37. <content [facility] corpuscular 0 styleCode="Bold Gena hemoglobin ">Mean Corpus. Medical concentration Hgb Center [Mass/volume] by Concentration Automated count (MCHC) </content>32.2 G/DL<content styleCode="Ital ics"> (32.0-37.0 G/DL)</content> Platelets 130-400 <content [facility] [#/volume] in styleCode="Bold Gena Blood by ">Platelet Medical Automated count Count Center </content>218 KCUMM<content styleCode="Ital ics"> (130-400 KCUMM)</content > Erythrocyte mean 26.0-34. <content [facility] corpuscular 0 styleCode="Bold Gena hemoglobin ">Mean Medical [Entitic mass] Corposcular Center by Automated Hemoglobin count </content>28.0 PG<content styleCode="Ital ics"> (26.0-34.0 PG)</content> Erythrocyte 11.5-14. <content [facility] distribution 5 styleCode="Bold Gena width [Ratio] by ">Red Cell Medical Automated count Distribution Center Width </content>14.2 %<content styleCode="Ital ics"> (11.5-14.5 %)</content> Platelet mean 8.0-11.0 <content [facility] volume [Entitic styleCode="Bold Gena volume] in Blood ">Mean Platelet Medical by Automated Volume Center count </content>10.7 FL<content styleCode="Ital ics"> (8.0-11.0 FL)</content> UNK 0 <content [facility] styleCode="Bold Gena ">Nucleated Red Medical Blood Cell Center </content>0.0 /100<content styleCode="Ital ics"> (0 /100)</content> UNK 0.0 <content [facility] styleCode="Bold Gena ">Nucleated Red Medical Blood Cell Center Count </content>0.00 KCUMM<content styleCode="Ital ics"> (0.0 KCUMM)</content > ID Date Data Source GFR(Creatinine).[id number] 11/01/2018 03:19:00 PM EDT [facility] 0-0400 Name Value Range Interpretation Code Description Data Amee rce(s) Supporting Document(s ) UNK > 60 <content [facility] styleCode="Bold"> Medical Cent er EGFR </content>104 GFR<content styleCode="Italic s"> (> 60 GFR)</content> ID Date Data Source BMP.[id number] 11/01/2018 03:19:00 PM EDT [facility] Name Value Range Interpretation Description Data Sup porting Code Source(s) Document(s ) UNK 7-17 <content [facility] styleCode="Bold"> Gena BUN </content>7 Medical MG/DL<content Center styleCode="Italic s"> (7-17 MG/DL)</content> Potassium 3.5-5.3 <content [facility] [Moles/volume] in styleCode="Bold"> Jasiel phs Serum or Plasma Potassium Medical </content>3.7 Center MEQ/L<content styleCode="Italic s"> (3.5-5.3 MEQ/L)</content> Sodium 137-145 <content [facility] [Moles/volume] in styleCode="Bold"> Jasiel phs Serum or Plasma Sodium Medical </content>143 Center MEQ/L<content styleCode="Italic s"> (137-145 MEQ/L)</content> Carbon dioxide, 22-30 <content [facility] total styleCode="Bold"> Gena [Moles/volume] in Carbon Dioxide Medical Serum or Plasma </content>26 Center MEQ/L<content styleCode="Italic s"> (22-30 MEQ/L)</content> Chloride 98-107 <content [facility] [Moles/volume] in styleCode="Bold"> Jasiel phs Serum or Plasma Chloride Medical </content>105 Center MEQ/L<content styleCode="Italic s"> (98-107 MEQ/L)</content> UNK > 60 <content [facility] styleCode="Bold"> Gena EGFR Medical </content>104 Center GFR<content styleCode="Italic s"> (> 60 GFR)</content> Calcium 8.4-10. <content [facility] [Mass/volume] in 2 styleCode="Bold"> Harshal hs Serum or Plasma Calcium Medical </content>9.9 Center MG/DL<content styleCode="Italic s"> (8.4-10.2 MG/DL)</content> Aspartate 14-36 <content [facility] aminotransferase styleCode="Bold"> Harshal hs [Enzymatic Aspartate Medical activity/volume] Aminotransferase Center in Serum or Plasma (AST) </content>21 IU/L<content styleCode="Italic s"> (14-36 IU/L)</content> Glucose 74-106 <content [facility] [Mass/volume] in styleCode="Bold"> Harshal hs Serum or Plasma Glucose Medical </content>87 Center MG/DL<content styleCode="Italic s"> (74-106 MG/DL)</content> Creatinine 0.5-1.3 <content [facility] [Mass/volume] in styleCode="Bold"> Harshal hs Serum or Plasma Creatinine Medical </content>0.8 Center MG/DL<content styleCode="Italic s"> (0.5-1.3 MG/DL)</content> Albumin 3.5-5.0 <content [facility] [Mass/volume] in styleCode="Bold"> Harshal hs Serum or Plasma Albumin Medical </content>4.9 Center G/DL<content styleCode="Italic s"> (3.5-5.0 G/DL)</content> Alkaline 38-126 <content [facility] phosphatase styleCode="Bold"> Gena [Enzymatic Alkaline Medical activity/volume] Phosphatase (ALP) Cente r in Serum or Plasma </content>56 IU/L<content styleCode="Italic s"> (38-126 IU/L)</content> Alanine 7-30 <content [facility] aminotransferase styleCode="Bold"> Harshal hs [Enzymatic Alanine Medical activity/volume] Aminotransferase Center in Serum or Plasma (ALT) </content>14 IU/L<content styleCode="Italic s"> (7-30 IU/L)</content> Bilirubin.total 0.2-1.3 <content Saint [Mass/volume] in styleCode="Bold"> Harshal hs Serum or Plasma Bilirubin Total Medical </content>0.3 Center MG/DL<content styleCode="Italic s"> (0.2-1.3 MG/DL)</content> ID Date Data Source [id number] 11/01/2018 03:00:00 PM EDT [facility] 0 Name Value Range Interpretation Description Data Sup porting Code Source(s) Document(s ) UNK CLEAR <content Saint styleCode="Jacklyn Gena d">Urine Medical Clarity Center </content>EMERITA R <content styleCode="Tania lics"> (CLEAR )</content> Glucose NEGATIVE <content Saint [Mass/volume] styleCode="Jacklyn Avery in Urine by d">Urine Medical Test strip Glucose Center </content>NEGA TIVE MG/DL<content styleCode="Tania lics"> (NEGATIVE MG/DL)</conten t> Color of Urine YELLOW <content Saint styleCode="Jacklyn Gena d">Color, Medical Urine Center </content>YELL OW <content styleCode="Tania lics"> (YELLOW )</content> UNK NEGATIVE <content Saint styleCode="Jacklyn Gena d">Urine Medical Bilirubin Center </content>NEGA TIVE <content styleCode="Tania lics"> (NEGATIVE )</content> Hemoglobin NEGATIVE <content Saint [Presence] in styleCode="Jacklyn Diazs Urine by Test d">Urine Blood Medical strip </content>NEGA Center TIVE <content styleCode="Tania lics"> (NEGATIVE )</content> Ketones NEGATIVE <content Saint [Mass/volume] styleCode="Jacklyn Gena in Urine by d">Urine Medical Test strip Ketone Center </content>NEGA TIVE MG/DL<content styleCode="Tania lics"> (NEGATIVE MG/DL)</conten t> Specific 1.015-1.02 Above high <content Saint gravity of 5 normal styleCode="Jacklyn Diazs Urine by Test d">Urine Medical strip Specific Center [place] </content>>= 1.030 H<content styleCode="Tania lics"> (1.015-1.025 )</content> pH of Urine by 4.5-8.0 <content Saint Test strip styleCode="Jacklyn Diazs d">Urine pH Medical </content>5.5 Center <content styleCode="Tania lics"> (4.5-8.0 )</content> Urobilinogen 0.2-1.0 <content Saint [Units/volume] styleCode="Jacklyn Gena in Urine by d">Urine Medical Test strip Urobilinogen Center </content>0.2 MG/DL<content styleCode="Tania lics"> (0.2-1.0 MG/DL)</conten t> Protein NEGATIVE <content Saint [Mass/volume] styleCode="Jacklyn Gena in Urine by d">Urine Medical Test strip Protein Center </content>NEGA TIVE MG/DL<content styleCode="Tania lics"> (NEGATIVE MG/DL)</conten t> Nitrite NEGATIVE <content Saint [Presence] in styleCode="Jacklyn Diazs Urine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
[2019-11-05] MEDS ORDERED: diphenhydrAMINE HCL 25 MG CAPSULE (FP) PO PRN (23:37)
[2019-11-05] MEDS ORDERED: diphenhydrAMINE HCL 25 MG CAPSULE (FP) PO SCH (23:45)
--- NOTE | 2019-11-05 23:48 | HP ---
CHIEF COMPLAINT: I have these muscle aches PCP: does not have a PCP but would really like to have someone she could see regularly HISTORY OF PRESENT ILLNESS: 39yo F with unclear PMHx presented with unwitnessed symptoms of dystonia due to IM Prolixin injection. Patient explained that she was experiencing intermittent blurred vision, tongue swelling, and she was feeling weak and tired. Also endorse restlessness, feeling that when she sits down she gets tense and trembles, and has to move around. Symptoms are mildly alleviated with movement but she feels anxious. Furthermore, patient explained that she often feels she needs to urinate but is unable to, and when she can finally "let it out it hurts". Denied NVD and constipation. Patient had a printout paper with information on the prolixin injection which she used to help explain her symptoms. Why did she get the injection? Patient was hospitalized for one month in the [facility] Psych draper. She said that in order for her to leave the psych draper she had to take this injection. She said she never needed to be there, but "they" (patient never specified who exactly) want her to look like she is crazy. Prior to her hospitalization "they" called CPS on her and CPS took her son away from her. Story became difficult to follow but at some point the police came, placed her in handcuffs and took her to [facility]. Patient said that while she was hospitalized, she received prolixin and lithium BID during her hospital stay then 3 days before d/c they started her on depakote BID. ER course was notable for: (1) Physical exam remarkable for anxious affect and irregular HR (2) EKG showing sinus rhythm with irregular rate (3) HPI remarkable for one month hospitalization in psych draper Recent Travel: none PAST MEDICAL HISTORY: none thus far but unclear PAST SURGICAL HISTORY: Social History: Smoking: denied Alcohol: occasionally, not daily Drugs: denied Work: studying for her masters, not working but trying to find work, gets VSS assistance Home: lives alone in [place] Allergies No Known Allergies Allergy (Verified 08/21/16 21:57) HOME MEDICATIONS: none REVIEW OF SYSTEMS as per HPI PHYSICAL EXAMINATION Vital Signs - 24 hr 11/05/19 11/05/19 17:25 21:27 Temperature 98.0 F Pulse Rate 92 H Pulse Rate [ 95 H Left] Respiratory 18 18 Rate Blood Pressure 142/101 H Blood Pressure 138/88 [Right Arm] O2 Sat by Pulse 100 100 Oximetry (%) GENERAL: AAF, appears somewhat younger than stated age, thin body habitus, AAOx4 showing no signs of moderate distress HEAD: Normal with no signs of trauma EYES: PERRL, extraocular movements intact bilaterally, white sclera NECK: No lymphadenopathy LUNGS: CTAB HEART: irregular rate, normal S1 and S2 without murmur ABDOMEN: Soft, nontender, not distended, hypoactive bowel sounds EXTREMITIES: 2+ radial and dorsalis pedis pulses, warm to touch bilaterally, nontender to palpation, no peripheral edema appreciated, no active lesions or ulcers noted on feet bilaterally including interdigital web spaces NEUROLOGICAL: Cranial nerves II-XII grossly intact. Normal speech with symmetricalfacial movements. Sensation intact bilaterally. Normal gait. PSYCHIATRIC: Cooperative and interactive, responds appropriately. Good eye contact, occasionally prolonged. Tired/weak/tense mood and anxious affect SKIN: no rashes or lesions noted Laboratory Results - last 24 hr 11/05/19 11/05/19 11/05/19 18:20 18:20 18:20 WBC 4.9 RBC 3.82 Hgb 10.8 Hct 33.0 D MCV 86.3 MCH 28.4 MCHC 32.9 RDW 16.7 H Plt Count 189 MPV 10.2 D Absolute Neuts (auto) 2.8 Neutrophils % 57.1 D Lymphocytes % 32.1 D Monocytes % 8.8 Eosinophils % 1.4 Basophils % 0.6 Nucleated RBC % 0 Sodium 139 Potassium 4.1 Chloride 105 Carbon Dioxide 26 Anion Gap 7 L BUN 9.6 Creatinine 1.0 Est GFR (CKD-EPI)AfAm 83.35 Est GFR (CKD-EPI)NonAf 71.91 Random Glucose 84 Calcium 8.9 Total Bilirubin 0.4 AST 16 ALT 18 Alkaline Phosphatase 53 Troponin I < 0.02 Total Protein 8.1 Albumin 4.3 Serum , Qual Negative Opiates Screen Negative Methadone Screen Negative Barbiturate Screen Negative Phencyclidine Screen Negative Ur Amphetamines Screen Negative MDMA (Ecstasy) Screen Negative Benzodiazepines Screen Negative Cocaine Screen Negative U Marijuana (THC) Screen Negative ASSESSMENT/PLAN: 39yo F with unclear PMHx presented with unwitnessed symptoms of dystonia due to IM Prolixin injection and admitted for further workup of drug reaction and psychiatric history. #unwitnessed dystonic symptoms due to IM prolixin in setting of unclear psychiatric/medical history > patient was hospitalized for one month in the Psych unit at [facility] - reason unclear. Patient said she received prolixin and lithium BID during her hospital stay then 3 days before d/c they started her on depakote BID > patient takes no meds at home > no signs of dystonia on physical exam but patient appeared anxious - Psych consult ordered - social work consult ordered - neuro consulted - ordered CXR, repeat AM EKG, UA, TSH - neurochecks and seizure precautions - benadryl PRN for agitation - patient does not have a PCP but would really like to have someone she can see regularly - may obtain medical records from [place] - may not be possible as psych records tend to be classified and unaccessible - undetermined whether patient should be on long-term home psych meds - may need further investigation of irregular heart rate (likely benign, ?PVCs, patient not experiencing palpitations) - fci, patient may benefit from a thorough OBGyn evaluation and further female health management #FEN - no standing fluids - replete lytes PRN - regular diet #PPX - DVT: lovenox #Dispo: telemetry Family Medical History Family History: As Documented Visit type - Emergency Visit Emergency Visit: Yes ED Registration Date: 11/05/19 Care time: The patient presented to the Emergency Department on the above date and was hospitalized for further evaluation of their emergent condition. - New Patient This patient is new to me today: Yes Date on this admission: 11/06/19 - Critical Care Critical Care patient: No ATTENDING PHYSICIAN STATEMENT I saw and evaluated the patient. I reviewed the resident's note and discussed the case with the resident. I agree with the resident's findings and plan as documented. SUBJECTIVE: OBJECTIVE: ASSESSMENT AND PLAN:
[2019-11-06 07:00] LABS: BASO % 0.7 % (0-2.0); EOS % 3.8 % (0-4.5); HEMATOCRIT 30.2 % (32.4-45.2); HEMOGLOBIN 9.8 GM/dL (10.7-15.3); LYMPH % 50.1 % (8-40); MCH 28.2 pg (25.7-33.7); MCHC 32.6 g/dl (32.0-36.0); MEAN CELL VOLUME 86.5 fl (80-96); MEAN PLT VOLUME 10.1 fl (7.5-11.1); MONO % 10.5 % (3.8-10.2); NEUT % 34.9 % (42.8-82.8); PLATELET COUNT 169 K/MM3 (134-434); RBC 3.49 M/mm3 (3.60-5.2); RDW 16.5 % (11.6-15.6); WHITE BLOOD COUNT 3.4 K/mm3 (4.0-10.0)
[2019-11-06 07:32] LABS: BILIRUBIN,TOTAL 0.3 mg/dL (0.2-1); CREATININE 0.8 mg/dL (0.55-1.3); MAGNESIUM 1.8 mg/dL (1.8-2.4); POTASSIUM 3.7 mmol/L (3.5-5.1)
[2019-11-06 07:45] LABS: ALBUMIN 3.6 g/dl (3.4-5.0); BLOOD UREA NITROGEN 8.5 mg/dL (7-18); PHOSPHOROUS 3.5 mg/dL (2.5-4.9); TOT PROT 6.7 g/dl (6.4-8.2)
[2019-11-06] MEDS ORDERED: ENOXAPARIN NA (PORCINE) 40 MG/0.4 ML DISP.SYRIN SQ ONE (09:12)
--- NOTE | 2019-11-06 09:53 | EKG ---
Test Reason : Blood Pressure : / mmHG Vent. Rate : 066 BPM Atrial Rate : 066 BPM P-R Int : 132 ms QRS Dur : 080 ms QT Int : 430 ms P-R-T Axes : 078 074 061 degrees QTc Int : 450 ms SINUS RHYTHM WITH MARKED SINUS ARRHYTHMIA POSSIBLE LEFT ATRIAL ENLARGEMENT BORDERLINE ECG WHEN COMPARED WITH ECG OF 22-APR-2016 20:09, NONSPECIFIC T WAVE ABNORMALITY NOW EVIDENT IN ANTERIOR LEADS Confirmed by BONNIE REYES, SANDRO ([id number]) on 11/06/2019 9:53:04 AM Referred By: Confirmed By:SANDRO NICOLE MD
[2019-11-06] MEDS ORDERED: ENOXAPARIN NA (PORCINE) 40 MG/0.4 ML DISP.SYRIN SQ SCH (10:00)
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
[2019-11-06] MEDS ORDERED: CYANOCOBALAMIN (VITAMIN B-12) 100 MCG TABLET PO SCH (11:30)
[2019-11-06] MEDS ORDERED: FERROUS SO4 325 MG TABLET (FP) PO SCH (11:30)
--- NOTE | 2019-11-06 11:42 | CON.NEURO ---
Consult Consult Specialty:: Chasidy Referred by:: ER Reason for Consultation:: Side effects - History of Present Illness History of Present Illness: 39 years old woman with ?? medical history HIV, Pysch history ?? Schizoaffective came in to [facility] ER with multiple somatic complaints of blurry vsison and jittery movements no fall no weight loss no no true seziure I was called to assess [facility] patient for ?? DYstonia I dont see any dystonia Patient is poor historian - History Source History Provided By: Patient Limitations to Obtaining History: Clinical Condition - Past Medical History ...LMP: 10/07/19 ...: No - Alcohol/Substance Use Hx Alcohol Use: No - Smoking History Smoking history: Never smoked Have you smoked in the past 12 months: No Home Medications - Allergies Allergies/Adverse Reactions: Allergies Allergy/AdvReac Type Severity Reaction Status Date / Time No Known Allergies Allergy Verified 08/21/16 21:57 - Home Medications Home Medications: Ambulatory Orders Emtricitabine/Tenofovir (Tdf) [Truvada 200 mg-300 mg Tablet] 1 each PO DAILY #27 tablet 08/22/16 NK [No Known Home Medication] 08/22/16 Raltegravir [Isentress -] 400 mg PO BID #46 tab 08/22/16 Family Medical History Family History: Unable to Obtain Review of Systems - Review of Systems Neurological: reports: Change in Speech, Confusion, Dizziness, Headache, Parasthesia Physical Exam-Neuro Vital Signs: Vital Signs Temperature 97.9 F 11/06/19 09:04 Pulse Rate 64 11/06/19 09:04 Respiratory Rate 18 11/06/19 09:04 Blood Pressure 137/84 11/06/19 09:04 O2 Sat by Pulse Oximetry (%) 100 11/06/19 09:04 Constitutional: Yes: Well Nourished Neck: Yes: WNL Cardiovascular: Yes: WNL Labs: CBC, BMP 11/06/19 05:41 11/06/19 05:41 - Neuro Exam Level Of Consciousness: Yes: Oriented to Person, Oriented to Place, Oriented to Time Eyes: Yes: PERRLA Speech: Garbled Cranial Nerves II-XII Intact: Yes Gag: Present DTR's: 1+ Left Bicep, 1+ Right Bicep, 1+ Left Tricep, 1+ Right Tricep Response to light touch: Normal Response to pain prick: Normal Response to temperature: Normal Motor Strength: 4/5: Left Arm, Right Arm, Left Leg, Right Leg Gait: Deferred Problem List - Problems (1) Adverse drug reaction Code(s): T50.905A - ADVERSE EFFECT OF UNSP DRUG/MEDS/BIOL SUBST, INIT (2) Paranoid schizophrenia Code(s): F20.0 - PARANOID SCHIZOPHRENIA Assessment/Plan 1. No acute neuro deficit 2. No obvious Dystonia 3. Pysch eval 4. Records from [facility] Dorian Umaña MD
[2019-11-06] MEDS ORDERED: LORazepam 2 MG TABLET PO ONE (12:06)
[2019-11-06] MEDS ORDERED: LORazepam 0.5 MG TABLET ONE (12:22)
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
[2019-11-06] MEDS ORDERED: diphenhydrAMINE HCL 25 MG CAPSULE (FP) PO ONE (13:30)
[2019-11-06 14:05] VITALS: BP 122/87; PULSE 68; TEMP 98.5
[2019-11-08 00:09] LABS: CK-MM 100 % (97-100)
== END 2019-11-06 14:00 | disposition home or self-care (01) | DRG 92 ==
LOC: JER 17:12 → JERFT 17:12 → JERBED 21:23
PROVIDERS: ADMIT Internal Medicine; ATTEND Nurse Practitioner Family
DX: G24.01 Drug induced subacute dyskinesia (principal); F20.0 Paranoid schizophrenia; F31.81 Bipolar II disorder; D64.9 Anemia, unspecified; I49.9 Cardiac arrhythmia, unspecified; F41.9 Anxiety disorder, unspecified; T43.3X5A Adverse effect of phenothiazine antipsychotics and neuroleptics, initial encounter
CPT/HCPCS: 36415; 80053; 80307; 82552; 83735; 84100; 84443; 84479; 84484; 84703; 85025; 93005; 93010; 99285-25; U0003

== ENCOUNTER 2019-11-08 20:05 | Emergency (ER) | payer OTHER ==
[2019-11-08 20:13] VITALS: BP 147/101; PULSE 101; TEMP 98; BMI 22.8
--- OUTSIDE RECORDS SUMMARY | 2019-11-08 20:33 | XMS ---
:1980 Author Organization [facility] Care Team Providers Name Role Phone Dexter Lozanohi Unavailable [phone] Eladia Mancuso Unavailable Unavailable ED STAFF PHYSICIAN, STAFF Unavailable Unavailable OYEKOLA RECEPTION INTERVIEWER, MOBOLAJI Unavailable OYEKOLA RECEPTION INTERVIEWER, MOBOLAJI Unavailable OYEKOLA RECEPTION INTERVIEWER, MOBOLAJI Unavailable KRIS REYES DHIMANTKAMAR Awilda Unavailable Awilda PONCE MD Unavailable Awilda [...] Unavailable Armendariz Unavailable Unavailable Armendariz Unavailable Unavailable Hurtado Unavailable Unavailable Ekechukwu Unavailable [phone] Ekechukwu Unavailable [phone] GIL BARRETT Unavailable Unavailable FavioTaylor MD Unavailable Unavailable Favio, Taylor MD Unavailable [...] Unavailable Unavailable Favio, Taylor MD Unavailable Unavailable [facility] Unavailable Unavailable [facility] Unavailable Re-disclosure Warning The records that you [...] is protected by Article 27-F of the [facility] Public Health law. If you continue you may haveaccess to information: Regarding HIV / AIDS; Provided by facilities licensed or operated by the [facility] Office of Mental Health; or Provided by the [facility] Office for People With Developmental Disabilities. If such information is present, then the following [facility] mandated warning applies: This information has been [...] law may result in a fine or intermediate sentence or both. A general authorization for the release of medical or other information is NOT sufficient authorization for further disclosure. Allergies and Adverse Reactions Type Description Substance Reaction Status Data Source(s ) Allergy to No Known Allergies No known GREENW AY ([facility] substance allergies Miguel (situation) [employer]) Drug allergy No Known Drug No Known Drug [facility] Propensity to Propensity to Propensity to NEXTG EN ([facility] adverse reactions adverse reactions adverse [facility] (disorder) (disorder) reactions Center) (disorder) Encounters Encounter Providers Location Date Indications Data Source(s ) Outpatient 10/20/2019 Shon ([facility] 09:59:00 AM [facility] [employer] [facility] [employer] [facility]T Development) Outpatient Referrer: Darlene Hurtado 10/20/2019 Kenzie REYES ([place] 09:53:00 AM [facility] [employer] EDT Development) Outpatient Referrer: Darlene Hurtado 10/20/2019 Kenzie REYES ([place] 09:53:00 AM [facility] [employer] EDT Development) Inpatient Attender: ARNOLD ORTIZ 10/02/2019 [facility] Lauren CORDERO 04:50:00 PM Medical Karen Leeder: EDT - STAFF ED STAFF 10/31/2019 PHYSICIANAdmitter: 01:25:00 PM ARNOLD CORDERO EDT IRUANIReferrer: [id number] [facility] Patient discharged. Attender: Bushra [facility] 03/13/2019 MELANIE N ([facility] 02:28:00 PM [facility] 03/13/2019 Center) 02:28:00 PM EST Outpatient 12/04/2018 [facility] 12:39:00 PM EDT Medical C enter Outpatient Attender: Mabel Mayorga 12/04/2018 [facility] VelezAdmitter: 10:25:00 AM EDT Medic al Center Mabel ArmendarizReferrer: Mabel Armendariz OutpatientOFFICE/OU Attender: [facility] 12/04/2018 NE XTGEN [facility]T - [facility] Ekechukwu 12/04/2018 Center) 10:25:00 AM EDT Outpatient 12/04/2018 [facility] 12:00:00 AM EDT - Medical Center 12/02/2018 12:00:00 AM EDT Inpatient Attender: SAMMIE H-HAL2 11/01/2018 [facility] YASMIN SAMMIE 01:51:00 PM EDT - Medic al Center AAdmitter: SAMMIE 12/02/2018 YASMIN SAMMIE 10:40:00 AM EDT AReferrer: SAMMIE YASMIN SAMMIE A Patient discharged. 11/01/2018 [facility] 12:00:00 AM EDT Medical C enter - 12/02/2018 12:00:00 AM EDT Unlisted 10/17/2018 NETSMART (Ment al evaluation and 06:45:00 PM EDT [facility]alt [facility] management [facility] [place]) Unlisted 06/27/2018 NETSMART (Ment al evaluation and 07:55:00 PM EDT Healt h management - 10/17/2018 [facility] 05:00:00 PM EDT [facility]) Emergency H 06/17/2018 [facility] 12:23:00 PM EDT Medical C enter Outpatient<td Attender: STEPHANIE Johnston 05/21/2018 SONY VOGT ([facility] ID="encounterTyp [facility] 01:00:00 PM EDT Miguel eDescriptionID0" Stella - 05/21/2018 [facility] >THERAPY</td><td 11:59:00 PM EDT [facility]) >STEPHANIE [facility]</td><td>[facility]</td><td>0 05/21/2018</td><t d></td> Outpatient 05/09/2018 [facility] 10:15:00 AM EDT ([facility]) Outpatient<td Attender: STEPHANIE Johnston 12/24/2017 SONY VOGT ([facility] ID="encounterTyp [facility] 09:00:00 AM EST Miguel eDescriptionID1" Stella - 12/24/2017 [facility] >THERAPY</td><td 11:59:00 PM EST [facility]) >STEPHANIE [facility]</td><td>[facility]</td><td>1 02/23/2017</td><t d></td> Outpatient<td Attender: STEPHANIE Johnston 11/26/2017 SONY VOGT ([place] ID="encounterTyp [facility] 09:00:00 AM EDT Miguel eDescriptionID2" Center - 11/26/2017 [facility] >THERAPY</td><td 11:59:00 PM EDT [facility]) >STEPHANIE PAZLINSON [facility]</td><td>[facility]</td><td>1 </td><t d></td> U Attender: Eladia Quiroz 11/15/2017 CARELOGRobinson Tanner (Family [facility] 12:30:00 PM EDT Services of - 03/21/2018 [place]) 04:08:00 PM EST Outpatient<td Attender: JOSSIE Johnston 11/02/2017 CARRIE YUNG ([place] ID="encounterTyp [facility] 01:15:00 PM EDT Miguel eDescriptionID3" Center - 11/02/2017 [facility] >WALKINS</td><td 01:31:48 PM EDT [facility]) >[facility]</td><td>[facility]</td><td>0 11/02/2017</td><t d></td> Outpatient<td [facility] 03/02/2014 SONY VOGT ([facility] ID="encounterTyp Center 09:30:00 AM EST Emily non eDescriptionID4" - 03/02/2014 [facility] >INITIAL 11:59:00 PM EST Health Ce nter) VISIT</td><td> </td><td>[facility]</td><td>0 03/02/2014</td><t d></td> Outpatient<td Attender: Single Homeless 05/07/2012 SONY VOGT ([place] ID="[facility] 11:00:00 AM EDT V zack eDescriptionID5" KRIS REYES Center - 05/07/2012 [facility] >Follow 11:59:00 PM EDT [facility] nter) Up</td><td>JUSTIN PONCE MD</td><td>Singl e Homeless Accessment Center</td><td>0 05/07/2012</td><t d></td> Outpatient<td Attender: Single Homeless 05/03/2012 GREENTatiana AY ([facility] ID="encounterTyp DHIMADANAMAR Accessment 09:00:00 AM EDT V zack eDescriptionID6" KRIS REYES Stella - 05/03/2012 [facility] >INITIAL 11:59:00 PM EDT Health nter) VISIT</td><td>DH MISAEL PONCE MD</td><td>Singl e Homeless Accessment Center</td><td>0 05/03/2012</td><t d></td> Attender: [facility] 01/14/2007 NEXTGE N ([facility] 10:34:00 AM [facility] - 01/14/2007 Center) 10:34:00 AM EST Immunizations Vaccine Date Status Description Data Source(s) As of October 1998, a 07/19/2006 completed hep B (adult) NEX TGEN ([facility] 2-dose hepatitis B 12:00:00 AM [facility] Medical schedule for adolescents [address] ter) (11-15 year olds) was FDA approved for Merck's Recombivax HB adult formulation. Use code 43 for the 2-dose. This code should be used for any use of standard adult formulation of hepatitis B vaccine. Source: New Immunization Record DTaP, 5 pertussis 07/19/2006 12:00:00 AM completed DTaP NEXTGEN ([facility] antigens [facility]) Source: New Immunization Record DTaP, 5 pertussis antigens completed DTaP N EXTGEN ([facility]) Source: New Immunization Record Medications Medication Brand Start Product Dose Route Administrative Pharmacy at Indications Reaction Description Data Name Date Form Instructions Instructions Source(s) quetiapine QUEtia 1.0 Oral active NET SMART 100 MG Oral pine 2019 Table (Mental Tablet Fumara 05:00: t Health te 00 AM Associatio EST n of [facility] r) Hydroxyzine hydrOX 1.0 Oral active NE TSMART Hydrochlori Yzine 2018 Table (Menta l de 25 MG HCl 05:00: t Health Oral Tablet 00 AM Associa kirby EST n of [facility] r) Vitamin B cyanoc 1 complet Saint 12 1 MG obalam ed Gena Oral Tablet in Medical cyanocobala (vitam Center min in (vitamin B-12) B-12) 1,000 1,000 mcg Tablet, mcg Ordered By: Tablet Yasmin Cochran, Ralphe PMHNPDirect d By: ions: 1 Sammie tablet oral Yasmin daily , PMHNPD irecti ons: 1 tablet oral daily mirtazapine complet Saint 15 mg ed Gena Tablet [facility] Center ferrous ferrou 1 complet Saint sulfate 325 s ed Gena MG Oral sulfat Medical Tablet e 325 Center ferrous mg (65 sulfate 325 mg mg (65 mg iron) iron) Tablet Tablet, , Ordered By: Leah Cochran d By: Sammie Chávez PMHNPDirect [facility] ions: 1 , tablet oral PMHNPD daily irecti ons: 1 tablet oral daily aripiprazol aripip 1 complet Edilson nt e 10 MG razole ed Gena Oral Tablet 10 mg Medical aripiprazol Tablet Center e 10 mg , Tablet, Ordere Ordered By: d By: Sammie Chávez [facility] PMHNPDirect , ions: 1 PMHNPD tablet oral [...] active No ROBERTA Medications or Medications ( [place] Taken medica Taken [facility]) fluphenazin fluPHE 1 mL complet Edilson nt [...] yed release (/EC (/EC), ), Ordered By: Leah Barrett d By: Arnold Cordero MDDirection Cordero s: 2 tablet , oral twice MDDire a day ctions : 2 tablet oral twice a day Trazodone traZOD 1 complet Saint Hydrochlori one 50 ed Joe s de 50 MG mg Medical Oral Tablet Tablet Center traZODone , 50 mg Ordere Tablet, d By: Ordered By: Arnold Cordeor, , MDDirection MDDire s: 1 tablet ctions [...] Policy type / Policy ID Covered Covered constitution party's Policy Plan Coverage type constitution party ID relationship to Birch Information birch MEDICAID [id number] SP [id number] MEDICARE [id number] SP [id number] 98 M [id number] 01 [id number] 98 M [id number] 01 [id number] 8 98 W [id number] 01 [id number] MEDICAID F [id number] F M [id number] 01 [id number] 8 98 W [id number] 01 [id number] M [id number] 01 [id number] 98 M [id number] 01 [id number] A W [id number] 01 [id number] M [id number] 01 [id number] A M [id number] 01 [id number] A Medicare Self MEDICAID [id number] Medicaid of Individual 0 Self 0 [place] Policy Medicare Part Individual 0 Self 0 A of [place] Policy Medicare-Blue [id number] S [id number] Cross/Blue 98 Shield MVP Medicaid [id number] S [id number] Y Managed Care Medicaid [id number] S [id number] Regular Clinic Visit Medicare [id number] S [id number] Services Problems, Conditions, and Diagnoses Code Display Name Description Problem Type Effective Data Sour ce(s) Dates 73066251 Delusional Delusional Complaint 07/22/2018 NETSTRISTAN (Ment al disorder disorder 05:30:00 PM [facility] EDT [facility]) [id number] No Active No Active Problem 11/02/2017 ROBERTA (Moun t Problems Problems 12:00:00 AM [facility]) [id number] Adjustment Adjustment Complaint 04/17/2013 TRACIEMART (Ment al disorder with disorder with 05:00:00 AM Health anxious mood anxious mood EST [facility]) F31.13 Bipolar disorder, BIPOLAR DISORD, Diagnosis 10/02/2019 Sa mahamed Avery current episode CRNT EPSD MANIC 04:50:00 PM [facility] manic without W/O PSYCH EDT psychotic FEATURES, SEVERE features, severe Z71.9 Counseling, COUNSELING, Diagnosis 12/04/2018 [facility] Joe kauffman unspecified UNSPECIFIED 10:25:[address] EDT Z71.89 Other specified OTHER SPECIFIED Diagnosis 12/04/2018 [facility] counseling COUNSELING 10:25:00 AM Medical Cente r EDT Z68.22 Body mass index BODY MASS INDEX Diagnosis 12/04/2018 [facility] (BMI) 22.0-22.9, (BMI) 22.0-22.9, 10:25:00 AM [facility] adult ADULT EDT N60.09 Solitary cyst of [...] Z56.0 Unemployment, UNEMPLOYMENT, Diagnosis 12/02/2018 [facility] Lauren kens unspecified UNSPECIFIED 10:40:[address] [facility] ter EDT Z91.14 Patient's other PATIENT'S OTHER [...] Encntr for obs Diagnosis 04/23/2018 SOHEILA Cid ([facility] observation for for oth suspected 07:08:38 PM V ernon other suspected diseases and cond EST Ne ighborhood diseases and ruled out Health Cente r) conditions ruled out F31.81 Bipolar II Bipolar II Diagnosis 11/15/2017 CARELOGIC disorder disorder 12:30:00 PM (Family Servi rufino EDT [facility] ) F43.25 Adjustment Adjustment Diagnosis 11/15/2017 CARELOGIC disorder with disorder with 12:30:00 PM (Family Services mixed disturbance mixed disturbance EDT [facility]) of emotions and of emotions and conduct conduct Surgeries/Procedures Procedure Description Date Indications Data Source(s) OFFICE/OUTPATIENT 12/04/2018 CONCEPCION (S aint VISIT, EST 12:00:00 AM Gena Medical EDT - Center) 12/04/2018 12:00:00 AM EDT Alcohol and/or drug 09/19/2018 NETSMART (Mental screening 04:25:00 PM Health [facility]) PSYCHOTHERAPY 45 MINS PSYCHOTHERAPY 45 MINS 05/21/2018 ROBERTA ([facility] PT & OR FAMILY PT & OR FAMILY 12:00:00 AM [facility]) Federally qualified FQHC Visit Mental 12/24/2017 CARRIE YUNG ([facility] ([facility]) Health Established 12:00:[address] [facility] visit, mental health, Patient [facility]) established patient; a medically-necessary, xmrb-ma-eenf mental health encounter (one-on-one) between an established patient and a [facility] practitioner during which time one or more [facility] services are rendered and includes a typical bundle of medicare-covered services that would be furnished senior peoplesoft developer to a patient receiving a mental health visit PSYCHOTHERAPY 45 MINS PSYCHOTHERAPY 45 MINS 12/24/2017 ROBERTA ([facility] PT & OR FAMILY PT & OR FAMILY 12:00:00 AM [facility]) No mental illness No mental illness 11/27/2017 JOSE ALBERTO CLINTON ([facility] 12:00:00 AM [facility]) No chronic illness No chronic illness 11/27/2017 CARRIE YUNG ([facility] 12:00:00 AM [facility]) PSYCHIATRIC DX PSYCHIATRIC DX 11/26/2017 ROBERTA (M ount EVALUATION EVALUATION 12:00:00 AM [facility]) Federally qualified [facility] Visit Mental 11/26/2017 CARRIE YUNG ([facility] ([facility]) Health Established 12:00:[address] [facility] visit, mental health, Patient [facility]) established patient; a medically-necessary, pltr-oa-khzg mental health encounter (one-on-one) between an established patient and a [facility] practitioner during which time one or more [facility] services are rendered and includes a typical bundle of medicare-covered services that would be furnished senior peoplesoft developer to a patient receiving a mental health visit Federally qualified FQHC Visit New 11/02/2017 SONY VOGT ([facility] ([facility]) Patient 12:00:[address] [facility] visit, new patient; a [facility]) medically-necessary, eexi-as-ygmc encounter (one-on-one) between a new patient and a [facility] practitioner during which time one or more [facility] services are rendered and includes a typical bundle of medicare-covered services that would be furnished senior peoplesoft developer to a patient receiving a [facility] visit Results ID Date Data Source HematologyRou.[id number] 10/31/2019 06:38:00 AM [facility] Name Value Range Interpretation Description Data [...] (< 1 %)</content> ID Date Data Source GFR(Creatinine).[id number] 10/31/2019 06:38:00 AM EDT [facility] 0-0400 Name Value Range Interpretation Code Description Data Amee rce(s) Supporting Document(s ) UNK > 60 <content [facility] styleCode="Bold"> Medical Cent er EGFR </content>80 GFR<content styleCode="Italic s"> (> 60 GFR)</content> ID Date Data Source CHMROUTINECCDA.[id number] 10/31/2019 06:38:00 AM EDT [facility] -0400 Name Value Range Interpretation Description Data Sup porting Code Source(s) Document(s ) Valproate 50-120 Below low normal <content Saint [Mass/volume] styleCode="Bold Gena in Serum or ">Valproic Acid Medical Plasma </content>14.4 Center UG/ML L<content styleCode="Ital ics"> (50-120 UG/ML)</content > ID Date Data Source BMP.[id number] 10/31/2019 06:38:00 AM EDT [facility] Name Value Range Interpretation Description Data Sup porting Code Source(s) Document(s ) Sodium 137-145 <content Saint [Moles/volume] styleCode="Jacklyn Diazs in Serum or d">Sodium Medical Plasma </content>137 [...] Data Source Liver 10/22/2019 06:30:00 AM EDT [facility] Profile.[id number] Name Value Range Interpretation Description Data Sup [...] s"> (0.2-1.3 MG/DL)</content> ID Date Data Source Hormones.[id number] 10/22/2019 06:30:00 AM EDT [facility] Name Value Range Interpretation Description Data Sup porting Code Source(s) Document(s ) Thyrotropin 0.465-4. Above high normal <content Saint [Units/volume] 68 styleCode="Jacklyn Gena in Serum or d">Thyroid Medical Plasma by [facility] Center Detection Hormone limit <= 0.05 </content>5.47 mIU/L MIU/L H<content styleCode="Tania lics"> (0.465-4.68 MIU/L)</conten t> ID Date Data Source GFR(Creatinine).[id number] 10/22/2019 06:30:00 AM EDT [facility] 0-0400 Name Value Range Interpretation Code Description Data Amee rce(s) Supporting Document(s ) UNK > 60 <content [facility] styleCode="Bold"> Medical Cent er EGFR </content>91 GFR<content styleCode="Italic s"> (> 60 GFR)</content> ID Date Data Source CHMROUTINECCDA.[id number] 10/22/2019 06:30:00 AM EDT [facility] -0400 Name Value Range Interpretation Description Data Sup porting Code Source(s) Document(s ) Protein 6.3-8.2 <content [facility] [Mass/volum styleCode="Bold Medical e] in Serum ">Total Protein Center or Plasma </content>8.1 G/DL<content styleCode="Ital ics"> (6.3-8.2 G/DL)</content> UNK 2.3-3.5 <content [facility] styleCode="Bold Medical ">Globulin Center </content>3.3 G/DL<content styleCode="Ital ics"> (2.3-3.5 G/DL)</content> UNK >= 1.0 <content [facility] styleCode="Bold Medical ">AG Ratio Center </content>1.5 <content styleCode="Ital ics"> (>= 1.0 )</content> ID Date Data Source [facility].[id number] 10/22/2019 06:30:00 AM EDT [facility] Name Value Range Interpretation [...] 98-107 <content [facility] [Moles/volume] in styleCode="Bold"> [facility] Serum or Plasma Chloride Medical </content>105 Center [...] MG/DL)</content> Alkaline 38-126 <content [facility] phosphatase styleCode="Bold"> [facility] [Enzymatic Alkaline Medical activity/volume] Phosphatase (ALP) Cente [...] s"> (0.2-1.3 MG/DL)</content> ID Date Data Source Urinalysis.[id number] 10/02/2019 08:30:00 PM EDT Edilson [facility] 0 Name Value Range Interpretation Description Data Sup porting Code Source(s) Document(s ) Color of Urine YELLOW <content Saint styleCode="Jacklyn Diazs d">Color, Medical Urine Center </content>YELL OW <content styleCode="Tania lics"> (YELLOW )</content> UNK CLEAR <content Saint styleCode="[facility] d">Urine Medical Clarity Center </content>TURB ID <content styleCode="Tania lics"> (CLEAR )</content> Ketones NEGATIVE <content [facility] [Mass/volume] styleCode="Jacklyn Diazs in Urine by d">Urine Medical Test strip Ketone Center </content>NEGA TIVE MG/DL<content styleCode="Tania lics"> (NEGATIVE MG/DL)</conten t> UNK NEGATIVE <content Saint styleCode="[facility] d">Urine Medical Bilirubin Center </content>NEGA TIVE <content styleCode="Tania lics"> (NEGATIVE )</content> Specific 1.015-1.02 Above high <content Saint gravity of 5 normal styleCode="Jacklyn [facility] Urine by Test d">Urine Medical strip Specific Center Congress </content>>= 1.030 H<content styleCode="Tania lics"> (1.015-1.025 )</content> [...] (NONE SEEN HPF)</content> ID Date Data Source MRMARCIANO.[id number] 10/02/2019 08:30:00 PM EDT Edilson [facility] -0400 Name Value Range Interpretation Description Data Sup porting Code Source(s) Document(s ) Cannabinoids <content Saint [Presence] in styleCode="[facility] Urine by Screen d">Cannabinoid Medical method >50 ng/mL s Center </content>NEGA TIVE NG/ML (Reference Range: not available)<br/ > ID Date Data Source Liver 10/02/2019 06:02:00 PM EDT [facility] Profile.[id number] Name Value Range Interpretation Description Data Sup porting Code Source(s) Document(s ) Alkaline 38-126 <content [facility] phosphatase styleCode="Bold"> [facility] [Enzymatic Alkaline Medical activity/volume] Phosphatase (ALP) Cente [...] s"> (0.0-0.3 MG/DL)</content> ID Date Data Source LIPID.[id number] 10/02/2019 06:02:00 PM EDT [facility] Center Name Value Range Interpretation Description Data [...] 100 MG/DL)</conten t> ID Date Data Source HematologyRou.[id number] 10/02/2019 06:02:00 PM EDT Edilson nt [facility] 0400 Name Value Range Interpretation Description Data [...] (0.0 KCUMM)</content > ID Date Data Source GFR(Creatinine).[id number] 10/02/2019 06:02:00 PM EDT [facility] 0-0400 Name Value Range Interpretation Code Description Data Amee rce(s) Supporting Document(s ) UNK > 60 <content [facility] styleCode="Bold"> Medical Cent er EGFR </content>104 GFR<content styleCode="Italic s"> (> 60 GFR)</content> ID Date Data Source CHMROUTINECCDA.[id number] 10/02/2019 06:02:00 PM EDT [facility] -0400 Name Value Range Interpretation Code Description Data Amee rce(s) Supporting Document(s ) UNK 4.2-5.8 <content [facility] styleCode="Bold" Medical Cente r >Hemoglobin A1C </content>5.1 %<content styleCode="Itali cs"> (4.2-5.8 %)</content> ID Date Data Source [facility].[id number] 10/02/2019 06:02:00 PM EDT [facility] Name Value Range Interpretation Description Data [...] s"> (38-126 IU/L)</content> ID Date Data Source [id number] 10/02/2019 12:00:00 AM EDT [facility] Name Value Range Interpretation Code Description Data Amee rce(s) Supporting Document(s ) 2019-nCoV [facility] RNA XXX SHANNON+probe- Imp This lab was ordered by [facility] and reported by [facility]. ID Date Data Source HematologySpeci.[id number] 11/26/2018 06:20:00 AM EDT [facility] 0-0400 Name Value Range Interpretation Description Data Sup porting Code Source(s) Document(s ) Erythrocyte < 20 <content Saint sedimentation styleCode="Bold" Gena rate by >[facility] Sedementation Stella method Rate (ESR) </content>10 MM/hr<content styleCode="Itali cs"> (< 20 MM/hr)</content> ID Date Data Source HematologyRou.[id number] 11/26/2018 06:20:00 AM EDT [facility] 0400 Name Value Range Interpretation Description Data [...] (0-0.1 KCUMM)</content > ID Date Data Source HematologySpeci.[id number] 11/22/2018 06:22:00 AM EDT [facility] 0-0400 Name Value Range Interpretation Description Data Sup porting Code Source(s) Document(s ) C reactive < 3.0 <content [facility] protein styleCode="Bold Medical [Mass/volume ">C-Reactive Center ] in Serum Protein or Plasma </content>0.23 MG/L<content styleCode="Ital ics"> (< 3.0 MG/L)</content> ID Date Data Source CHMROUTINECCDA.[id number] 11/22/2018 06:22:00 AM EDT [facility] -0400 Name Value Range Interpretation Description Data Sup porting Code Source(s) Document(s ) Lactate 316-618 <content Saint dehydrogenase styleCode="Bold Gena [Enzymatic ">Lactate Medical activity/volume] Dehydrogenase Center in Serum or (LDH) Plasma by </content>450 Pyruvate to IU/L<content lactate reaction styleCode="Ital ics"> (316-618 IU/L)</content> Ferritin 11-264 Below low normal <content Saint [Mass/volume] in styleCode="Bold Gena Serum or Plasma ">Ferritin Medical </content>7.55 Center NG/ML L<content styleCode="Ital ics"> (11-264 NG/ML)</content > ID Date Data Source Hormones.[id number] 11/15/2018 01:06:00 PM EDT [facility] Name Value Range Interpretation Description Data Sup [...] (0.78-2.19 NG/DL)</conten t> ID Date Data Source HematologyRou.[id number] 11/15/2018 01:06:00 PM EDT [facility] 0400 Name Value Range Interpretation Description Data [...] (< 1 %)</content> ID Date Data Source ChemistrySpecia.[id number] 11/15/2018 01:06:00 PM EDT [facility] 0-0400 Name Value Range Interpretation Description Data [...] (239-931 PG/ML)</conten t> ID Date Data Source MARYURI.[id number] 11/15/2018 01:06:00 PM EDT [facility] nt [facility] -0400 Name Value Range Interpretation Description Data Sup porting Code Source(s) Document(s ) Folate > 3.0 <content [facility] [Mass/volu styleCode="Bold Medical me] in ">Folic Acid Center Serum or </content>10.2 Plasma NG/ML<content styleCode="Ital ics"> (> 3.0 NG/ML)</content > Iron 37-170 <content [facility] [Mass/volu styleCode="Bold Medical me] in ">Iron Center Serum or </content>43 Plasma UG/DL<content styleCode="Ital ics"> (37-170 UG/DL)</content > UNK 265-497 <content [facility] styleCode="Bold Medical ">TIBC Center </content>390 UG/DL<content styleCode="Ital ics"> (265-497 UG/DL)</content > ID Date Data Source Hormones.[id number] 11/14/2018 01:00:00 PM EDT [facility] Name Value Range Interpretation Code Description Data Amee rce(s) Supporting Document(s ) UNK Above high normal <content [facility] styleCode="Bold"> Medical Cent er Prolactin </content>182.8 ng/mL H (Reference Range: not available)
ID Date Data Source [id number].[id number] 11/07/2018 01:15:00 PM EDT [facility] Name Value Range Interpretation Description Data Sup porting Code Source(s) Document(s ) Triglyceride < 150 Above high normal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
--- NOTE | 2019-11-08 20:54 | PDOC ---
Attending Attestation - Resident Resident Name: Matilda Hunt - ED Attending Attestation I have performed the following: I have examined & evaluated the patient, The case was reviewed & discussed with the resident, I agree w/resident's findings & plan - HPI HPI: 11/08/19 21:04 Pt had a prolixin IM injection 3 days ago; she was admitted here for weakness and tongue tremors. Pt is back requesting IV ativan for her neck spasm. she is ambulating about and she has normal vital signs. Pt states that her muscle relaxants make her pain worse. - Physicial Exam PE: 11/08/19 21:24 Normal exam. Parapinal and trapezius spasm Agree with resident exam - Medical Decision Making 11/08/19 21:24 Pt will be given lidoderm patch as well as oral ativan. Pt will go home driven by a friend Discharge - Discharge Information Problems reviewed: Yes Clinical Impression/Diagnosis: Muscle spasm Condition: Stable Disposition: HOME - Additional Discharge Information Prescriptions: Diphenhydramine HCl [Benadryl -] 25 mg PO ONCE #10 capsule - Follow up/Referral Referrals: Zee Degroot MD [Staff Physician] - Joe Stiles MD [Primary Care Provider] - Marc Batista MD [Staff Physician] - - Patient Discharge Instructions Patient Printed Discharge Instructions: DI for Muscle Spasm Additional Instructions: You were seen in the ER for a muscle spams Ativan is not the appropriate treatment for that You should follow up with your Psychiatrist and Neurologist You have a referral placed for you, please follow up as needed Return to the ER if you develop worsening pain, difficulty breathing, talking or any other concerning symptoms. - Post Discharge Activity Work/Back to School Note: My Personal Safety Plan
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
[2019-11-08] MEDS ORDERED: diphenhydrAMINE HCL 25 MG CAPSULE (FP) PO ONE ×2 (21:01→21:16)
[2019-11-08] MEDS ORDERED: LORazepam 2 MG TABLET PO ONE (21:06)
[2019-11-08] MEDS ORDERED: LIDOCAINE 5% TOPICAL PATCH TP ONE (21:12)
[2019-11-08] MEDS ORDERED: LORazepam 0.5 MG TABLET ONE (21:16)
[2019-11-08] MEDS ORDERED: LIDOCAINE 5% TOPICAL PATCH ONE (21:16)
[2019-11-08] MEDS ORDERED: LIDOCAINE PATCH REMOVAL MC SCH (22:00)
== END 2019-11-08 21:39 | disposition home or self-care (01) ==
LOC: JER 20:05
DX: M62.838 Other muscle spasm (principal)
CPT/HCPCS: 99283-25

== ENCOUNTER 2019-11-20 16:36 | Emergency (ER) | payer OTHER ==
[2019-11-20 16:44] VITALS: BP 136/98; PULSE 99; TEMP 98.8; BMI 22.8
[2019-11-20] MEDS ORDERED: LIDOCAINE 5% TOPICAL PATCH TP ONE (17:19)
[2019-11-20] MEDS ORDERED: diphenhydrAMINE HCL 25 MG CAPSULE (FP) PO ONE ×2 (17:19→17:32)
[2019-11-20] MEDS ORDERED: IBUPROFEN 400 MG TABLET (FP) PO ONE ×2 (17:19→17:32)
--- NOTE | 2019-11-20 17:20 | PDOC ---
History of Present Illness - General Chief Complaint: Pain Stated Complaint: PAIN Time Seen by Provider: 11/20/19 16:51 History Source: Patient Exam Limitations: No Limitations Past History - Travel History Traveled outside of the country in the last 30 days: No Close contact w/someone who was outside of country & ill: No - Medical History Allergies/Adverse Reactions: Allergies Allergy/AdvReac Type Severity Reaction Status Date / Time No Known Allergies Allergy Verified 11/20/19 16:39 Home Medications: Ambulatory Orders Emtricitabine/Tenofovir (Tdf) [Truvada 200 mg-300 mg Tablet] 1 each PO DAILY #27 tablet 08/22/16 Raltegravir [Isentress -] 400 mg PO BID #46 tab 08/22/16 Cyclobenzaprine HCl [Flexeril -] 10 mg PO BID PRN #15 tablet 11/06/19 Diphenhydramine HCl [Benadryl -] 25 mg PO BID PRN #21 capsule 11/06/19 Diphenhydramine HCl [Benadryl -] 25 mg PO ONCE #10 capsule 11/08/19 Lidocaine 5% Patch [Lidoderm Patch -] 1 patch TP DAILY #30 patch 11/08/19 Ibuprofen 600 mg PO Q6H #30 tablet 11/20/19 Methocarbamol [Robaxin -] 500 mg PO BID #14 tablet 11/20/19 Anemia: No Asthma: No COPD: No Diabetes: No Psychiatric Problems: Yes Seizures: No - Reproductive History Is Patient Now?: No - Immunization History Immunization Up to Date: Yes - Psycho-Social/Smoking History Smoking History: Never smoked Have you smoked in the past 12 months: No - Substance Abuse Hx (Audit-C & DAST Scrn) How often the patient has a drink containing alcohol: Never Score: In Men: 4 or > Positive; In Women: 3 or > Positive: 0 Screen Result (Pos requires Nsg. Audit-10AR): Negative In the last yr the pt used illegal drug/Rx for NonMed reason: No Score: Yes response is considered Positive: 0 Screen Result (Positive result requires Nsg. DAST-10): Negative Review of Systems - Review of Systems Able to Perform ROS?: Yes Comments:: 11/20/19 17:26 CONSTITUTIONAL: Absent: fever, chills, diaphoresis, generalized weakness, malaise, loss of appetite HEENT: Absent: rhinorrhea, nasal congestion, throat pain, throat swelling, difficulty swallowing, mouth swelling, ear pain, eye pain, visual Changes CARDIOVASCULAR: Absent: chest pain, loss of consciousness, palpitations, irregular heart rate, peripheral edema RESPIRATORY: Absent: cough, shortness of breath, dyspnea with exertion, orthopnea, wheezing, stridor, hemoptysis GASTROINTESTINAL: Absent: abdominal pain, abdominal distension, nausea, vomiting, diarrhea, constipation, melena, hematochezia GENITOURINARY: Absent: dysuria, frequency, urgency, hesitancy, hematuria, flank pain, genital pain MUSCULOSKELETAL: Present: spasms Absent: myalgia, arthralgia, joint swelling SKIN: Absent: rash, itching, pallor HEMATOLOGIC/IMMUNOLOGIC: Absent: easy bleeding, easy bruising, lymphadenopathy, frequent infections ENDOCRINE: Absent: unexplained weight gain, unexplained weight loss, heat intolerance, cold intolerance NEUROLOGIC: Absent: headache, focal weakness or paresthesias, dizziness, unsteady gait, seizure, mental status changes, bladder or bowel incontinence PSYCHIATRIC: Present: anxious Absent: depression, suicidal or homicidal ideation, hallucinations. Is the patient limited Upper Sorbian proficient: No *Physical Exam - Vital Signs Last Vital Signs Temp Pulse Resp BP Pulse Ox 98.8 F 99 H 18 136/98 98 11/20/19 16:39 11/20/19 16:39 11/20/19 16:39 11/20/19 16:39 11/20/19 16:39 - Physical Exam 11/20/19 17:27 GENERAL: Well developed, well nourished. Awake and alert. No acute distress. HEENT: Normocephalic, atraumatic. PERRLA, EOMI. No conjunctival pallor. Sclera are non- icteric. Moist mucous membranes. NECK: Supple. Full ROM. No JVD. Carotid pulses 2+ and symmetric, without bruits. No thyromegaly. No lymphadenopathy. CARDIOVASCULAR: Regular rate and rhythm. No murmurs, rubs, or gallops. Distal pulses are 2+ and symmetric. PULMONARY: No evidence of respiratory distress. ABDOMINAL: Soft. Non-tender. Non-distended. No rebound or guarding. MUSCULOSKELETAL TTP of the L cervical spine paraspinous muscles. Normal range of motion at all joints. No bony deformities or tenderness. No CVA tenderness. EXTREMITIES: No cyanosis. No clubbing. No edema. No calf tenderness. SKIN: Warm and dry. Normal capillary refill. No rashes. No jaundice. NEUROLOGICAL: Alert, awake, appropriate. Cranial nerves 2-12 intact. No deficits to light touch and temperature in face, upper extremities and lower extremities. No motor deficits in the in face, upper extremities and lower extremities. Normoreflexic in the upper and lower extremities. Normal speech. Toes are down-going bilaterally. Gait is normal without ataxia. PSYCHIATRIC: Pressured speech. Cooperative. Good eye contact. Appropriate mood and affect. Medical Decision Making - Medical Decision Making 11/20/19 17:31 The patient is a 39-year-old female with past medical history of HIV, psych disorder?, presents to the ER for muscle spasms. She states that she is still feeling the same way after her Prolixin injection on 10/25/2019. She states that she had been taking Benadryl and muscle relaxer with little relief of her symptoms at home. She states that yesterday she was feeling better when she woke up this morning she had pain in her neck. She is convinced it is due to the Prolixin injection. She has not been taking any psych meds does not believe she has a psych problem. A/P: Muscle spasms On exam there is a palpable spasm to the left paraspinous cervical muscles. Unlikely that this is due to her Prolixin injection as it is almost a month old at this time. Half-life of Prolixin injection is 14 days. We will treat with ibuprofen and Benadryl at this time. Discharge home with Robaxin. Patient is alert and oriented x3, nonsuicidal, non-homicidal, no A/V hallucinations. Patient needs to follow-up with her primary care doctor. Advised we cannot keep giving her Ativan as this is a addictive drug. Discharge home with return precautions. Discharge - Discharge Information Problems reviewed: Yes Clinical Impression/Diagnosis: Muscle spasm Condition: Stable Disposition: HOME - Admission No - Additional Discharge Information Prescriptions: Ibuprofen 600 mg PO Q6H #30 tablet Methocarbamol [Robaxin -] 500 mg PO BID #14 tablet - Follow up/Referral Referrals: Joe Stiles MD [Primary Care Provider] - - Patient Discharge Instructions Patient Printed Discharge Instructions: DI for Muscle Spasm Additional Instructions: You were treated for your muscle spasms today. It is unlikely that it is due to the Prolixin shot at this point as it is been almost a month since he received the first dose. The shot lasts only for 1 month. Please take the Robaxin as directed. You may also take ibuprofen to help with the pain. You may apply warm packs to the area. Please follow-up with your primary care doctor tomorrow. Return to the ER for any new or worsening symptoms. - Post Discharge Activity
[2019-11-20] MEDS ORDERED: LIDOCAINE 5% TOPICAL PATCH ONE (17:32)
[2019-11-20] MEDS ORDERED: KETOROLAC TROMETHAMINE 60 MG/2 ML VIAL IM ONE (17:38)
[2019-11-20] MEDS ORDERED: KETOROLAC TROMETHAMINE 30 MG/1 ML VIAL ONE (17:43)
== END 2019-11-20 17:52 | disposition home or self-care (01) ==
LOC: JER 16:36
PROC: 3E0233Z Introduction of Anti-inflammatory into Muscle, Percutaneous Approach (ICD-10-PCS; principal; 2019-11-20)
DX: M62.838 Other muscle spasm (principal)
CPT/HCPCS: 99284-25